=== PATIENT | female | born 1940 | race Caucasian/White ===

== ENCOUNTER 2020-11-22 15:13 | Inpatient (IN) | payer MEDICARE ==
[2020-11-22 17:15] LABS: #Basophils 0.1 thou/uL (0.0-0.2); #Eosinphils 0.1 thou/uL (0.0-0.7); #Lymphocytes 3.1 thou/uL (1.20-3.40); #Monocytes 1.8 thou/uL (0.11-0.59); #Neutrophils 9.8 thou/uL (1.40-6.50); %Basophils 0.5 % (0.0-1.0); %Eosinophils 0.5 % (0.0-10.0); %Lymphocytes 20.8 % (21.0-51.0); %Neutrophils 66.1 % (42.0-75.0); Hemoglobin 15.4 g/dL (12.0-16.0); Mean Corpuscular HGB CONC 33.9 g/dL (32.0-36.0); Mean Corpuscular Hemoglobin 32.7 pg (27.0-31.0); Mean Corpuscular Volume 96.3 fL (78.0-98.0); Mean Platelet Volume 9.6 fL (7.4-10.4); Platelet Count 282 thou/uL (130-400); RBC Distribution Width 12.6 % (11.5-14.5); Red Blood Cell (RBC) Count 4.71 mill/uL (4.20-5.40); White Blood Cell (WBC) Count 14.8 thou/uL (4.8-10.8)
[2020-11-22 17:29] LABS: INR-International Normal Ratio 1.1
[2020-11-22 17:39] LABS: ALT (SGPT) 24 U/L (8-55); AST (SGOT) 36 U/L (5-34); Albumin 4.4 g/dL (3.4-4.8); Alkaline Phosphatase 108 U/L (40-110); Anion Gap 24 mmol/L (10-20); BUN (Urea Nitrogen) 82 mg/dL (9.8-20.1); Bilirubin, Total 1.3 mg/dL (0.2-1.2); Calc. Creatinine Clearance 0 mL/min (70-130); Calcium 9.9 mg/dL (7.8-10.44); Carbon Dioxide 37 mmol/L (23-31); Globulin 3.7 g/dL (2.4-3.5); Glucose 253 mg/dL (83-110); Protein, Total 8.1 g/dL (5.8-8.1); Sodium 131 mmol/L (136-145)
[2020-11-22 17:47] LABS: Chloride 72 mmol/L (98-107); Potassium 2.2 mmol/L (3.5-5.1)
[2020-11-22] MEDS ORDERED: Meclizine HCl 25 MG TAB ONE (18:01)
[2020-11-22] MEDS ORDERED: Aspirin 325 MG TAB ONE (18:01)
[2020-11-22] MEDS ORDERED: Potassium Chloride 20 MEQ TAB ONE (18:01)
[2020-11-22 18:02] LABS: CKMB 1.3 ng/mL (0-6.6)
[2020-11-22 18:12] LABS: Bilirubin Negative (Negative); Blood, Urine Negative (Negative); Clarity Clear (Clear); Glucose, Urine (Dipstick) Normal (Negative); Ketone, Urine Negative (Negative); Leukocyte Negative Leu/uL (Negative); Nitrite Negative (Negative); Protein, Urine (Dipstick) Negative (Neg-Trace); Specific Gravity, Urine 1.012 (1.002-1.036); Urobilinogen Normal mg/dL (Less than 2)
[2020-11-22 20:41] LABS: Troponin I 0.056 ng/mL (< 0.028)
[2020-11-22] MEDS ORDERED: Dextrose 5% in Water 1,000 ML IV PRN (21:55)
[2020-11-22] MEDS ORDERED: Ondansetron PF 4 MG/2 ML Vial IVP PRN (21:55)
[2020-11-22] MEDS ORDERED: Dextrose 50% Abboject 50 ML SYRINGE SLOW IVP PRN (21:55)
[2020-11-22] MEDS ORDERED: Magnesium 2 GM/50 ML 2 GM in Premix Bag 1 BAG IVPB SCH (22:00)
[2020-11-22 22:21] LABS: Anion Gap 27 mmol/L (10-20); BUN (Urea Nitrogen) 77 mg/dL (9.8-20.1); Calc. Creatinine Clearance 0 mL/min (70-130); Calcium 9.7 mg/dL (7.8-10.44); Carbon Dioxide 33 mmol/L (23-31); Chloride 74 mmol/L (98-107); Glucose 190 mg/dL (83-110); Potassium 3.1 mmol/L (3.5-5.1); Sodium 131 mmol/L (136-145)
[2020-11-22] MEDS ORDERED: Sodium Chloride 0.9% 1,000 ML IV SCH (22:30)
[2020-11-22] MEDS ORDERED: Lantus 1000 UNITS/10 ML VIAL SC SCH (22:30)
[2020-11-22] MEDS: Potassium Chloride 20 MEQ in Premix Bag 1 BAG IVPB SCH (23:08)
[2020-11-22 23:42] LABS: Troponin I 0.041 ng/mL (< 0.028)
[2020-11-23] MEDS: Potassium Chloride 20 MEQ in Premix Bag 1 BAG IVPB SCH (02:50)
[2020-11-23 05:24] LABS: #Eosinphils 0.1 thou/uL (0.0-0.7); #Lymphocytes 2.8 thou/uL (1.20-3.40); #Monocytes 1.6 thou/uL (0.11-0.59); #Neutrophils 7.6 thou/uL (1.40-6.50); %Basophils 0.4 % (0.0-1.0); %Eosinophils 1.1 % (0.0-10.0); %Lymphocytes 23.2 % (21.0-51.0); %Monocytes 13.2 % (0.0-10.0); %Neutrophils 62.1 % (42.0-75.0); Hemoglobin 14.4 g/dL (12.0-16.0); Mean Corpuscular HGB CONC 34.5 g/dL (32.0-36.0); Mean Corpuscular Hemoglobin 33.2 pg (27.0-31.0); Mean Corpuscular Volume 96.2 fL (78.0-98.0); Mean Platelet Volume 9.6 fL (7.4-10.4); Platelet Count 254 thou/uL (130-400); RBC Distribution Width 12.5 % (11.5-14.5); Red Blood Cell (RBC) Count 4.34 mill/uL (4.20-5.40); White Blood Cell (WBC) Count 12.2 thou/uL (4.8-10.8)
[2020-11-23 05:48] LABS: Anion Gap 19 mmol/L (10-20); BUN (Urea Nitrogen) 72 mg/dL (9.8-20.1); Calc. Creatinine Clearance 28 mL/min (70-130); Calcium 9.7 mg/dL (7.8-10.44); Carbon Dioxide 35 mmol/L (23-31); Chloride 80 mmol/L (98-107); Glucose 200 mg/dL (83-110); Magnesium 2.9 mg/dL (1.6-2.6); Sodium 132 mmol/L (136-145)
[2020-11-23 05:50] LABS: Potassium 2.2 mmol/L (3.5-5.1)
[2020-11-23] MEDS: Acetaminophen 325 MG TAB PO PRN (05:56)
[2020-11-23] MEDS ORDERED: Meclizine HCl 25 MG TAB PO PRN (06:00)
[2020-11-23] MEDS: HumaLOG 300 UNITS/3 ML VIAL SC PRN ×3 (06:13→18:29)
[2020-11-23] MEDS ORDERED: Potassium Chloride 20 MEQ TAB PO SCH ×2 (06:15→14:15)
[2020-11-23] MEDS ORDERED: Metoprolol Tartrate 25 MG TAB PO SCH (09:00)
[2020-11-23] MEDS: Lantus 1000 UNITS/10 ML VIAL SC SCH ×2 (09:51→21:04)
[2020-11-23] MEDS ORDERED: Potassium Chloride 40 MEQ in Premix Bag 1 BAG IVPB SCH (12:15)
[2020-11-23 13:59] LABS: Anion Gap 18 mmol/L (10-20); BUN (Urea Nitrogen) 73 mg/dL (9.8-20.1); Calc. Creatinine Clearance 27 mL/min (70-130); Calcium 9.3 mg/dL (7.8-10.44); Carbon Dioxide 34 mmol/L (23-31); Chloride 80 mmol/L (98-107); Glucose 290 mg/dL (83-110); Sodium 129 mmol/L (136-145)
[2020-11-23 14:01] LABS: Potassium 2.8 mmol/L (3.5-5.1)
[2020-11-23] MEDS: Metoprolol Tartrate 25 MG TAB PO SCH (18:43)
[2020-11-23] MEDS: Potassium Chloride 20 MEQ TAB PO SCH (21:02)
[2020-11-23] MEDS: Gabapentin 100 MG CAP PO SCH (21:03)
[2020-11-23 21:04] LABS: #Basophils 0.1 thou/uL (0.0-0.2); #Eosinphils 0.2 thou/uL (0.0-0.7); #Lymphocytes 4.1 thou/uL (1.20-3.40); #Monocytes 1.5 thou/uL (0.11-0.59); #Neutrophils 6.2 thou/uL (1.40-6.50); %Basophils 0.6 % (0.0-1.0); %Eosinophils 1.8 % (0.0-10.0); %Lymphocytes 33.8 % (21.0-51.0); %Monocytes 12.2 % (0.0-10.0); %Neutrophils 51.6 % (42.0-75.0); Hemoglobin 13.9 g/dL (12.0-16.0); Mean Corpuscular Hemoglobin 33.2 pg (27.0-31.0); Mean Corpuscular Volume 97.6 fL (78.0-98.0); Mean Platelet Volume 9.4 fL (7.4-10.4); Platelet Count 258 thou/uL (130-400); RBC Distribution Width 12.5 % (11.5-14.5); Red Blood Cell (RBC) Count 4.18 mill/uL (4.20-5.40)
[2020-11-23 21:20] LABS: Anion Gap 16 mmol/L (10-20); BUN (Urea Nitrogen) 72 mg/dL (9.8-20.1); Calc. Creatinine Clearance 29 mL/min (70-130); Calcium 9.4 mg/dL (7.8-10.44); Carbon Dioxide 34 mmol/L (23-31); Chloride 85 mmol/L (98-107); Glucose 279 mg/dL (83-110); Potassium 3.4 mmol/L (3.5-5.1); Sodium 132 mmol/L (136-145)
[2020-11-24] MEDS: traMADol HCl 50 MG TAB PO SCH ×4 (00:27→21:50)
[2020-11-24] MEDS: Potassium Chloride 20 MEQ TAB PO SCH (00:28)
[2020-11-24 05:56] LABS: #Basophils 0.1 thou/uL (0.0-0.2); #Eosinphils 0.3 thou/uL (0.0-0.7); #Lymphocytes 4.5 thou/uL (1.20-3.40); #Monocytes 1.4 thou/uL (0.11-0.59); #Neutrophils 4.9 thou/uL (1.40-6.50); %Basophils 0.9 % (0.0-1.0); %Eosinophils 2.8 % (0.0-10.0); %Monocytes 12.4 % (0.0-10.0); %Neutrophils 43.8 % (42.0-75.0); Hemoglobin 13.1 g/dL (12.0-16.0); Mean Corpuscular HGB CONC 33.7 g/dL (32.0-36.0); Mean Corpuscular Hemoglobin 32.9 pg (27.0-31.0); Mean Corpuscular Volume 97.8 fL (78.0-98.0); Mean Platelet Volume 9.5 fL (7.4-10.4); Platelet Count 238 thou/uL (130-400); RBC Distribution Width 12.5 % (11.5-14.5); Red Blood Cell (RBC) Count 3.97 mill/uL (4.20-5.40); White Blood Cell (WBC) Count 11.1 thou/uL (4.8-10.8)
[2020-11-24] MEDS: HumaLOG 300 UNITS/3 ML VIAL SC PRN ×4 (06:09→22:03)
[2020-11-24 06:17] LABS: BUN (Urea Nitrogen) 65 mg/dL (9.8-20.1); Calc. Creatinine Clearance 35 mL/min (70-130); Calcium 9.3 mg/dL (7.8-10.44); Glucose 195 mg/dL (83-110); Magnesium 2.9 mg/dL (1.6-2.6)
[2020-11-24 06:26] LABS: Anion Gap 19 mmol/L (10-20); Carbon Dioxide 32 mmol/L (23-31); Chloride 88 mmol/L (98-107); Potassium 3.7 mmol/L (3.5-5.1); Sodium 135 mmol/L (136-145)
[2020-11-24] MEDS: Lantus 1000 UNITS/10 ML VIAL SC SCH ×2 (09:17→21:46)
[2020-11-24] MEDS: Metoprolol Tartrate 25 MG TAB PO SCH ×2 (09:17→16:51)
[2020-11-24] MEDS: Gabapentin 100 MG CAP PO SCH (21:47)
[2020-11-24] MEDS: Acetaminophen 325 MG TAB PO PRN (21:51)
[2020-11-25] MEDS: Melatonin 3 MG TAB PO PRN (00:20)
[2020-11-25] MEDS: Acetaminophen 325 MG TAB PO PRN (04:16)
[2020-11-25 05:00] LABS: #Basophils 0.1 thou/uL (0.0-0.2); #Eosinphils 0.4 thou/uL (0.0-0.7); #Lymphocytes 4.5 thou/uL (1.20-3.40); #Monocytes 1.1 thou/uL (0.11-0.59); #Neutrophils 4.4 thou/uL (1.40-6.50); %Basophils 0.7 % (0.0-1.0); %Eosinophils 3.4 % (0.0-10.0); %Lymphocytes 43.2 % (21.0-51.0); %Monocytes 10.7 % (0.0-10.0); %Neutrophils 42.1 % (42.0-75.0); Hemoglobin 12.4 g/dL (12.0-16.0); Mean Corpuscular HGB CONC 34.1 g/dL (32.0-36.0); Mean Corpuscular Hemoglobin 33.3 pg (27.0-31.0); Mean Corpuscular Volume 97.4 fL (78.0-98.0); Mean Platelet Volume 9.3 fL (7.4-10.4); Platelet Count 216 thou/uL (130-400); RBC Distribution Width 12.5 % (11.5-14.5); Red Blood Cell (RBC) Count 3.73 mill/uL (4.20-5.40); White Blood Cell (WBC) Count 10.5 thou/uL (4.8-10.8)
[2020-11-25] MEDS: traMADol HCl 50 MG TAB PO SCH ×3 (05:08→21:12)
[2020-11-25 05:19] LABS: ALT (SGPT) 17 U/L (8-55); AST (SGOT) 27 U/L (5-34); Albumin 3.4 g/dL (3.4-4.8); Alkaline Phosphatase 97 U/L (40-110); Anion Gap 12 mmol/L (10-20); BUN (Urea Nitrogen) 52 mg/dL (9.8-20.1); Bilirubin, Total 0.4 mg/dL (0.2-1.2); Calc. Creatinine Clearance 43 mL/min (70-130); Carbon Dioxide 35 mmol/L (23-31); Chloride 91 mmol/L (98-107); Globulin 3.1 g/dL (2.4-3.5); Glucose 164 mg/dL (83-110); Magnesium 2.7 mg/dL (1.6-2.6); Potassium 3.2 mmol/L (3.5-5.1); Protein, Total 6.5 g/dL (5.8-8.1); Sodium 135 mmol/L (136-145)
[2020-11-25] MEDS: Lantus 1000 UNITS/10 ML VIAL SC SCH ×2 (08:03→21:14)
[2020-11-25] MEDS: Metoprolol Tartrate 25 MG TAB PO SCH ×2 (08:06→16:37)
[2020-11-25] MEDS ORDERED: SUGAMMADEX SODIUM 500 MG/5 ML VIAL ONE (08:19)
[2020-11-25] MEDS: HumaLOG 300 UNITS/3 ML VIAL SC PRN ×3 (11:19→21:23)
[2020-11-25] MEDS: Gabapentin 100 MG CAP PO SCH (21:13)
[2020-11-26] MEDS: Melatonin 3 MG TAB PO PRN ×2 (00:32→20:48)
[2020-11-26] MEDS: Acetaminophen 325 MG TAB PO PRN (06:31)
[2020-11-26] MEDS: traMADol HCl 50 MG TAB PO SCH ×3 (06:32→20:50)
[2020-11-26] MEDS: Lantus 1000 UNITS/10 ML VIAL SC SCH ×2 (08:01→20:49)
[2020-11-26] MEDS: Metoprolol Tartrate 25 MG TAB PO SCH ×2 (08:01→15:29)
[2020-11-26] MEDS: HumaLOG 300 UNITS/3 ML VIAL SC PRN ×3 (11:39→20:49)
[2020-11-26] MEDS ORDERED: Sodium Chloride 0.9% 500 ML IVPB SCH (15:30)
[2020-11-26 15:47] VITALS: BMI 34.4
[2020-11-26] MEDS: Gabapentin 100 MG CAP PO SCH (20:47)
[2020-11-27] MEDS: Acetaminophen 325 MG TAB PO PRN ×2 (03:30→07:53)
[2020-11-27] MEDS: traMADol HCl 50 MG TAB PO SCH (06:13)
[2020-11-27] MEDS: HumaLOG 300 UNITS/3 ML VIAL SC PRN (06:14)
[2020-11-27 07:53] VITALS: BP 112/59; TEMP 98.1
[2020-11-27] MEDS: Lantus 1000 UNITS/10 ML VIAL SC SCH (07:53)
[2020-11-27] MEDS: Metoprolol Tartrate 25 MG TAB PO SCH (07:54)
[2020-11-27 08:29] LABS: #Basophils 0.1 thou/uL (0.0-0.2); #Eosinphils 0.3 thou/uL (0.0-0.7); #Lymphocytes 3.7 thou/uL (1.20-3.40); #Monocytes 1.1 thou/uL (0.11-0.59); #Neutrophils 4.5 thou/uL (1.40-6.50); %Basophils 0.8 % (0.0-1.0); %Eosinophils 2.8 % (0.0-10.0); %Lymphocytes 38.5 % (21.0-51.0); %Neutrophils 46.9 % (42.0-75.0); Mean Corpuscular HGB CONC 32.6 g/dL (32.0-36.0); Mean Corpuscular Hemoglobin 32.5 pg (27.0-31.0); Mean Corpuscular Volume 99.6 fL (78.0-98.0); Mean Platelet Volume 9.1 fL (7.4-10.4); Platelet Count 225 thou/uL (130-400); RBC Distribution Width 12.5 % (11.5-14.5); White Blood Cell (WBC) Count 9.6 thou/uL (4.8-10.8)
[2020-11-27 08:53] LABS: ALT (SGPT) 16 U/L (8-55); AST (SGOT) 28 U/L (5-34); Albumin 3.2 g/dL (3.4-4.8); Alkaline Phosphatase 79 U/L (40-110); Anion Gap 15 mmol/L (10-20); BUN (Urea Nitrogen) 35 mg/dL (9.8-20.1); Bilirubin, Total 0.4 mg/dL (0.2-1.2); Calc. Creatinine Clearance 44 mL/min (70-130); Calcium 9.1 mg/dL (7.8-10.44); Carbon Dioxide 34 mmol/L (23-31); Chloride 92 mmol/L (98-107); Globulin 3.6 g/dL (2.4-3.5); Glucose 198 mg/dL (83-110); Protein, Total 6.8 g/dL (5.8-8.1); Sodium 137 mmol/L (136-145)
== END 2020-11-27 11:45 | disposition home health service (06) | DRG 683 ==
LOC: ERS 15:13 → 2NO 19:50
PROVIDERS: ADMIT Internal Medicine; ATTEND Student in an Organized Health Care Education/Training Program
PROC: 0T9B70Z Drainage of Bladder with Drainage Device, Via Natural or Artificial Opening (ICD-10-PCS; principal; 2020-11-23)
DX: N17.9 Acute kidney failure, unspecified (principal); E87.1 Hypo-osmolality and hyponatremia; I13.0 Hypertensive heart and chronic kidney disease with heart failure and stage 1 through stage 4 chronic kidney disease, or unspecified chronic kidney disease; E87.3 Alkalosis; R33.9 Retention of urine, unspecified; Z20.822 Contact with and (suspected) exposure to COVID-19; N18.30 Chronic kidney disease, stage 3 unspecified; E87.6 Hypokalemia; E87.8 Other disorders of electrolyte and fluid balance, not elsewhere classified; D72.829 Elevated white blood cell count, unspecified; E11.22 Type 2 diabetes mellitus with diabetic chronic kidney disease; G89.4 Chronic pain syndrome; M79.7 Fibromyalgia; I48.0 Paroxysmal atrial fibrillation; M19.90 Unspecified osteoarthritis, unspecified site; I50.9 Heart failure, unspecified; R77.8 Other specified abnormalities of plasma proteins; E11.40 Type 2 diabetes mellitus with diabetic neuropathy, unspecified; J44.9 Chronic obstructive pulmonary disease, unspecified; E86.0 Dehydration; E66.9 Obesity, unspecified; Z68.33 Body mass index [BMI] 33.0-33.9, adult; Z88.1 Allergy status to other antibiotic agents; Z91.041 Radiographic dye allergy status; Z90.710 Acquired absence of both cervix and uterus; Z79.899 Other long term (current) drug therapy; Z79.4 Long term (current) use of insulin; Z82.49 Family history of ischemic heart disease and other diseases of the circulatory system; Z87.891 Personal history of nicotine dependence
CPT/HCPCS: 36415; 36416; 70450; 70551; 71045; 76770; 80048; 80053; 81003; 82553; 82570; 83735; 83930; 83935; 84484; 85025; 85610; 85730; 87635; 93005; J1815; J3480; J7030; U0003; U0005

== ENCOUNTER 2022-06-26 19:00 | Outpatient (CLI) | payer MEDICARE | END 2022-06-26 19:01 | disposition home or self-care (01) | LOC: SLEEPLAB 19:00 | PROVIDERS: ATTEND Family Medicine | DX: G47.33 Obstructive sleep apnea (adult) (pediatric) (principal); G47.9 Sleep disorder, unspecified; I25.10 Atherosclerotic heart disease of native coronary artery without angina pectoris; E11.9 Type 2 diabetes mellitus without complications; E66.9 Obesity, unspecified; R06.83 Snoring; G47.10 Hypersomnia, unspecified; G47.00 Insomnia, unspecified; I10 Essential (primary) hypertension; G47.31 Primary central sleep apnea | CPT/HCPCS: 95810 ==

== ENCOUNTER 2022-07-13 20:30 | Inpatient (IN) | payer OTHER ==
[2022-07-13 21:03] LABS: #Eosinphils 0.3 thou/uL (0.0-0.7); #Lymphocytes 3.3 thou/uL (1.20-3.40); #Monocytes 0.8 thou/uL (0.11-0.59); #Neutrophils 5.9 thou/uL (1.40-6.50); %Basophils 0.5 % (0.0-1.0); %Eosinophils 2.4 % (0.0-10.0); %Lymphocytes 31.7 % (21.0-51.0); %Monocytes 7.9 % (0.0-10.0); %Neutrophils 57.5 % (42.0-75.0); Hemoglobin 12.9 g/dL (12.0-16.0); Mean Corpuscular HGB CONC 33.2 g/dL (32.0-36.0); Mean Corpuscular Hemoglobin 33.4 pg (27.0-31.0); Mean Platelet Volume 8.5 fL (7.4-10.4); Platelet Count 231 10x3/uL (130-400); RBC Distribution Width 13.5 % (11.5-14.5); Red Blood Cell (RBC) Count 3.85 mill/uL (4.20-5.40); White Blood Cell (WBC) Count 10.3 10x3/uL (4.8-10.8)
[2022-07-13 21:26] LABS: ALT (SGPT) 14 U/L (8-55); AST (SGOT) 19 U/L (5-34); Albumin 4.1 g/dL (3.4-4.8); Alkaline Phosphatase 97 U/L (40-110); Anion Gap 15 mmol/L (10-20); BUN (Urea Nitrogen) 42 mg/dL (9.8-20.1); Bilirubin, Total 0.8 mg/dL (0.2-1.2); Calc. Creatinine Clearance 0 mL/min (70-130); Calcium 9.1 mg/dL (7.8-10.44); Carbon Dioxide 26 mmol/L (23-31); Chloride 104 mmol/L (98-107); Estimated GFR 30; Globulin 3.3 g/dL (2.4-3.5); Glucose 200 mg/dL (83-110); Potassium 3.8 mmol/L (3.5-5.1); Protein, Total 7.4 g/dL (5.8-8.1); Sodium 141 mmol/L (136-145)
[2022-07-13] MEDS ORDERED: Aspirin 325 MG TAB ONE (21:33)
[2022-07-13] MEDS ORDERED: Dextrose 5% in Water 1,000 ML IV PRN (22:15)
[2022-07-13] MEDS ORDERED: Dextrose 50% Abboject 50 ML SYRINGE SLOW IVP PRN (22:15)
[2022-07-13] MEDS ORDERED: Ondansetron ODT 4 MG TAB PO PRN (22:16)
[2022-07-13] MEDS ORDERED: Senokot S 8.6-50 MG TAB PO PRN (22:16)
[2022-07-13] MEDS ORDERED: Furosemide 40 MG/4 ML VIAL SLOW IVP SCH (22:30)
[2022-07-14 00:10] VITALS: BMI 34.3
[2022-07-14] MEDS ORDERED: HumaLOG 300 UNITS/3 ML VIAL SC PRN (00:30)
[2022-07-14] MEDS: Acetaminophen 325 MG TAB PO PRN ×3 (01:18→17:01)
[2022-07-14] MEDS: traMADol HCl 50 MG TAB PO PRN ×3 (01:22→19:33)
[2022-07-14 06:18] LABS: #Basophils 0.1 thou/uL (0.0-0.2); #Eosinphils 0.3 thou/uL (0.0-0.7); #Lymphocytes 3.2 thou/uL (1.20-3.40); #Neutrophils 5.6 thou/uL (1.40-6.50); %Basophils 0.7 % (0.0-1.0); %Eosinophils 3.2 % (0.0-10.0); %Lymphocytes 31.6 % (21.0-51.0); %Monocytes 9.4 % (0.0-10.0); %Neutrophils 55.2 % (42.0-75.0); Mean Corpuscular Hemoglobin 31.1 pg (27.0-31.0); Mean Platelet Volume 8.6 fL (7.4-10.4); Platelet Count 225 10x3/uL (130-400); RBC Distribution Width 13.5 % (11.5-14.5); Red Blood Cell (RBC) Count 3.87 mill/uL (4.20-5.40); White Blood Cell (WBC) Count 10.1 10x3/uL (4.8-10.8)
[2022-07-14 06:46] LABS: ALT (SGPT) 13 U/L (8-55); AST (SGOT) 19 U/L (5-34); Albumin 3.9 g/dL (3.4-4.8); Alkaline Phosphatase 96 U/L (40-110); Anion Gap 16 mmol/L (10-20); BUN (Urea Nitrogen) 35 mg/dL (9.8-20.1); Bilirubin, Total 0.6 mg/dL (0.2-1.2); Calc. Creatinine Clearance 46 mL/min (70-130); Calcium 8.6 mg/dL (7.8-10.44); Carbon Dioxide 25 mmol/L (23-31); Cardiac Risk 3.8 (Less than 4.5); Chloride 106 mmol/L (98-107); Cholesterol 152 mg/dl (< 200 Desired); Estimated GFR 38; Globulin 3.3 g/dL (2.4-3.5); Glucose 119 mg/dL (83-110); HDL Cholesterol 40 mg/dL (>60 Neg Risk); LDL Cholesterol, Calculated 91 mg/dL; Potassium 3.5 mmol/L (3.5-5.1); Protein, Total 7.2 g/dL (5.8-8.1); Sodium 143 mmol/L (136-145); Triglycerides 106 mg/dL (Less than 150)
[2022-07-14] MEDS: Aspirin 81 mg Enteric Coated Tablet PO SCH (08:33)
[2022-07-14] MEDS: Furosemide 40 MG TAB PO SCH ×2 (08:34→14:56)
[2022-07-14] MEDS: Famotidine 20 MG TAB PO SCH (08:34)
[2022-07-14] MEDS: HumaLOG 300 UNITS/3 ML VIAL SC PRN ×2 (11:48→17:02)
[2022-07-14] MEDS: Metoprolol Tartrate 25 MG TAB PO SCH ×2 (11:50→16:31)
[2022-07-14] MEDS ORDERED: Potassium Chloride 20 MEQ TAB PO SCH (12:00)
[2022-07-14] MEDS ORDERED: Atorvastatin Calcium 40 MG TAB PO SCH (21:00)
[2022-07-15] MEDS: Acetaminophen 325 MG TAB PO PRN (01:29)
[2022-07-15] MEDS: traMADol HCl 50 MG TAB PO PRN ×2 (05:13→13:17)
[2022-07-15 05:27] LABS: Hemoglobin A1c 7.1 % (4.0-6.0)
[2022-07-15 05:43] LABS: Anion Gap 13 mmol/L (10-20); BUN (Urea Nitrogen) 27 mg/dL (9.8-20.1); Calc. Creatinine Clearance 56 mL/min (70-130); Calcium 9.2 mg/dL (7.8-10.44); Carbon Dioxide 25 mmol/L (23-31); Chloride 105 mmol/L (98-107); Estimated GFR 49; Glucose 157 mg/dL (83-110); Potassium 3.6 mmol/L (3.5-5.1); Sodium 139 mmol/L (136-145)
[2022-07-15] MEDS ORDERED: Potassium Chloride 20 MEQ TAB PO SCH (08:00)
[2022-07-15] MEDS: Aspirin 81 mg Enteric Coated Tablet PO SCH (08:09)
[2022-07-15] MEDS: Metoprolol Tartrate 25 MG TAB PO SCH ×2 (08:09→17:01)
[2022-07-15] MEDS: Famotidine 20 MG TAB PO SCH (08:09)
[2022-07-15] MEDS: Furosemide 40 MG TAB PO SCH ×3 (08:10→14:50)
[2022-07-15] MEDS ORDERED: Naproxen 500 MG TAB PO SCH (08:58)
[2022-07-15] MEDS ORDERED: Ondansetron PF 4 MG/2 ML Vial IVP PRN (10:08)
[2022-07-15] MEDS ORDERED: Methocarbamol 500 MG TAB PO PRN (16:41)
[2022-07-15 19:43] VITALS: BP 177/77; TEMP 97.9
[2022-07-17] MEDS ORDERED: FLU VACC QS2022-23(65YR UP)/PF 240 MCG/0.7 ML SYRINGE IM ONE (09:00)
== END 2022-07-15 20:32 | disposition home or self-care (01) | DRG 64 ==
LOC: ERS 20:30 → NEURO 21:33
PROVIDERS: ADMIT Student in an Organized Health Care Education/Training Program; ATTEND Internal Medicine
DX: I63.89 Other cerebral infarction (principal); I50.23 Acute on chronic systolic (congestive) heart failure; G81.91 Hemiplegia, unspecified affecting right dominant side; E11.9 Type 2 diabetes mellitus without complications; M79.7 Fibromyalgia; M19.90 Unspecified osteoarthritis, unspecified site; I11.0 Hypertensive heart disease with heart failure; I25.10 Atherosclerotic heart disease of native coronary artery without angina pectoris; R29.709 NIHSS score 9; I48.0 Paroxysmal atrial fibrillation; Z88.1 Allergy status to other antibiotic agents; Z91.041 Radiographic dye allergy status; Z90.710 Acquired absence of both cervix and uterus; Z79.84 Long term (current) use of oral hypoglycemic drugs; Z79.4 Long term (current) use of insulin; Z79.899 Other long term (current) drug therapy
CPT/HCPCS: 36415; 36416; 70450; 70551; 80048; 80053; 80061; 83036; 83880; 84443; 84484; 85025; 90471; 90662; 93005; 93306; 93880; G0008; J1815; J1940; Q0162; U0003; U0005

== ENCOUNTER 2022-07-16 02:27 | Inpatient (IN) | payer OTHER ==
[2022-07-16 03:32] LABS: #Eosinphils 0.1 thou/uL (0.0-0.7); #Lymphocytes 2.2 thou/uL (1.20-3.40); #Monocytes 0.8 thou/uL (0.11-0.59); #Neutrophils 6.9 thou/uL (1.40-6.50); %Basophils 0.2 % (0.0-1.0); %Eosinophils 1.3 % (0.0-10.0); %Lymphocytes 21.6 % (21.0-51.0); %Neutrophils 68.9 % (42.0-75.0); Hemoglobin 13.3 g/dL (12.0-16.0); Mean Corpuscular HGB CONC 32.5 g/dL (32.0-36.0); Mean Corpuscular Hemoglobin 32.6 pg (27.0-31.0); Mean Platelet Volume 8.7 fL (7.4-10.4); Platelet Count 223 10x3/uL (130-400); RBC Distribution Width 13.3 % (11.5-14.5); Red Blood Cell (RBC) Count 4.08 mill/uL (4.20-5.40)
[2022-07-16] MEDS ORDERED: PROPOFOL 20 ML ONE (03:38)
[2022-07-16 03:44] LABS: PTT 29.9 sec (22.9-36.1); Prothrombin Time 13.7 sec (12.0-14.7)
[2022-07-16 03:52] LABS: ALT (SGPT) 14 U/L (8-55); AST (SGOT) 27 U/L (5-34); Albumin 3.9 g/dL (3.4-4.8); Alkaline Phosphatase 89 U/L (40-110); Anion Gap 16 mmol/L (10-20); BUN (Urea Nitrogen) 27 mg/dL (9.8-20.1); Bilirubin, Total 0.8 mg/dL (0.2-1.2); Calc. Creatinine Clearance 0 mL/min (70-130); Calcium 9.2 mg/dL (7.8-10.44); Carbon Dioxide 21 mmol/L (23-31); Chloride 105 mmol/L (98-107); Estimated GFR 42; Globulin 3.4 g/dL (2.4-3.5); Glucose 171 mg/dL (83-110); Potassium 4.3 mmol/L (3.5-5.1); Protein, Total 7.3 g/dL (5.8-8.1); Sodium 138 mmol/L (136-145)
[2022-07-16 07:22] VITALS: BMI 34.3
[2022-07-16] MEDS ORDERED: Methocarbamol 500 MG TAB PO PRN (08:27)
[2022-07-16] MEDS ORDERED: Loratadine 10 MG TAB PO PRN (08:27)
[2022-07-16] MEDS ORDERED: Dextrose 5% in Water 1,000 ML IV PRN (08:30)
[2022-07-16] MEDS ORDERED: Dextrose 50% Abboject 50 ML SYRINGE SLOW IVP PRN (08:30)
[2022-07-16] MEDS ORDERED: HumaLOG 300 UNITS/3 ML VIAL SC PRN (08:30)
[2022-07-16] MEDS ORDERED: Ondansetron PF 4 MG/2 ML Vial IVP PRN (08:31)
[2022-07-16] MEDS ORDERED: Ondansetron ODT 4 MG TAB PO PRN (08:31)
[2022-07-16] MEDS: Multivitamin W/ Minerals 1 TAB PO SCH (09:34)
[2022-07-16] MEDS: traMADol HCl 50 MG TAB PO PRN ×2 (09:34→17:15)
[2022-07-16] MEDS: Oxybutynin 5 MG TAB PO SCH ×2 (09:34→20:20)
[2022-07-16] MEDS: Aspirin 81 mg Enteric Coated Tablet PO SCH (09:34)
[2022-07-16] MEDS ORDERED: Furosemide 20 MG TAB PO PRN (10:25)
[2022-07-16 13:27] LABS: SARS-CoV-2 NAA Rapid Test Not Detected (NotDetected)
[2022-07-16] MEDS: Metoprolol Tartrate 25 MG TAB PO SCH (17:15)
[2022-07-16] MEDS: Gabapentin 300 MG CAP PO SCH (20:20)
[2022-07-16] MEDS: Atorvastatin Calcium 40 MG TAB PO SCH (20:20)
[2022-07-16] MEDS: Senokot S 8.6-50 MG TAB PO PRN (20:24)
[2022-07-16] MEDS ORDERED: Acetaminophen 500 MG TAB PO SCH (23:15)
[2022-07-17] MEDS: traMADol HCl 50 MG TAB PO PRN ×2 (05:50→20:16)
[2022-07-17 07:19] LABS: #Basophils 0.1 thou/uL (0.0-0.2); #Eosinphils 0.4 thou/uL (0.0-0.7); #Lymphocytes 2.6 thou/uL (1.20-3.40); #Monocytes 1.2 thou/uL (0.11-0.59); #Neutrophils 4.7 thou/uL (1.40-6.50); %Basophils 0.6 % (0.0-1.0); %Eosinophils 4.3 % (0.0-10.0); %Monocytes 13.4 % (0.0-10.0); %Neutrophils 52.8 % (42.0-75.0); Hemoglobin 11.7 g/dL (12.0-16.0); Mean Corpuscular HGB CONC 31.3 g/dL (32.0-36.0); Mean Corpuscular Hemoglobin 32.3 pg (27.0-31.0); Mean Platelet Volume 8.6 fL (7.4-10.4); Platelet Count 214 10x3/uL (130-400); RBC Distribution Width 13.3 % (11.5-14.5); Red Blood Cell (RBC) Count 3.62 mill/uL (4.20-5.40); White Blood Cell (WBC) Count 8.8 10x3/uL (4.8-10.8)
[2022-07-17 07:33] LABS: Anion Gap 13 mmol/L (10-20); BUN (Urea Nitrogen) 31 mg/dL (9.8-20.1); Calc. Creatinine Clearance 46 mL/min (70-130); Carbon Dioxide 27 mmol/L (23-31); Chloride 102 mmol/L (98-107); Estimated GFR 39; Glucose 176 mg/dL (83-110); Sodium 138 mmol/L (136-145)
[2022-07-17] MEDS: Acetaminophen 325 MG TAB PO PRN ×3 (09:25→20:17)
[2022-07-17] MEDS: Oxybutynin 5 MG TAB PO SCH ×2 (09:26→20:16)
[2022-07-17] MEDS: Aspirin 81 mg Enteric Coated Tablet PO SCH (09:26)
[2022-07-17] MEDS: Metoprolol Tartrate 25 MG TAB PO SCH ×2 (09:26→16:59)
[2022-07-17] MEDS: Multivitamin W/ Minerals 1 TAB PO SCH (09:26)
[2022-07-17] MEDS: Potassium Chloride 20 MEQ TAB PO SCH (09:26)
[2022-07-17] MEDS: HumaLOG 300 UNITS/3 ML VIAL SC PRN (16:54)
[2022-07-17] MEDS: Senokot S 8.6-50 MG TAB PO PRN (16:58)
[2022-07-17] MEDS: Atorvastatin Calcium 40 MG TAB PO SCH (20:16)
[2022-07-17] MEDS: Gabapentin 300 MG CAP PO SCH (20:18)
[2022-07-18] MEDS: Acetaminophen 325 MG TAB PO PRN (06:23)
[2022-07-18] MEDS: traMADol HCl 50 MG TAB PO PRN (06:24)
[2022-07-18 07:25] LABS: #Eosinphils 0.4 thou/uL (0.0-0.7); #Lymphocytes 2.7 thou/uL (1.20-3.40); #Monocytes 0.9 thou/uL (0.11-0.59); #Neutrophils 4.4 thou/uL (1.40-6.50); %Basophils 0.5 % (0.0-1.0); %Eosinophils 4.2 % (0.0-10.0); %Lymphocytes 31.7 % (21.0-51.0); %Monocytes 10.6 % (0.0-10.0); %Neutrophils 52.9 % (42.0-75.0); Hemoglobin 12.2 g/dL (12.0-16.0); Mean Corpuscular HGB CONC 31.2 g/dL (32.0-36.0); Mean Platelet Volume 8.6 fL (7.4-10.4); Platelet Count 218 10x3/uL (130-400); RBC Distribution Width 13.3 % (11.5-14.5); Red Blood Cell (RBC) Count 3.81 mill/uL (4.20-5.40); White Blood Cell (WBC) Count 8.4 10x3/uL (4.8-10.8)
[2022-07-18 07:49] LABS: Anion Gap 12 mmol/L (10-20); BUN (Urea Nitrogen) 29 mg/dL (9.8-20.1); Calc. Creatinine Clearance 58 mL/min (70-130); Calcium 9.6 mg/dL (7.8-10.44); Carbon Dioxide 30 mmol/L (23-31); Chloride 101 mmol/L (98-107); Estimated GFR 52; Glucose 168 mg/dL (83-110); Sodium 139 mmol/L (136-145)
[2022-07-18] MEDS: Oxybutynin 5 MG TAB PO SCH (08:36)
[2022-07-18] MEDS: Metoprolol Tartrate 25 MG TAB PO SCH (08:36)
[2022-07-18] MEDS: Aspirin 81 mg Enteric Coated Tablet PO SCH (08:36)
[2022-07-18] MEDS: Potassium Chloride 20 MEQ TAB PO SCH (08:36)
[2022-07-18] MEDS: Multivitamin W/ Minerals 1 TAB PO SCH (08:36)
[2022-07-18] MEDS ORDERED: Bisacodyl 10 MG SUPP PR PRN (09:42)
[2022-07-18] MEDS ORDERED: NIFEdipine XL 60 MG TAB PO SCH (10:10)
[2022-07-18] MEDS ORDERED: Fleet Enema 133 ML BOT PR SCH (10:15)
[2022-07-18] MEDS: HumaLOG 300 UNITS/3 ML VIAL SC PRN (11:26)
[2022-07-18 15:43] VITALS: BP 138/65; TEMP 97.7
[2022-07-18] MEDS ORDERED: Senokot S 8.6-50 MG TAB PO SCH (21:00)
[2022-07-18] MEDS ORDERED: Metoprolol Tartrate 50 MG TAB PO SCH (21:00)
[2022-07-19] MEDS ORDERED: NIFEdipine XL 60 MG TAB PO SCH (09:00)
[2022-07-19] MEDS ORDERED: Polyethylene Glycol 3350 17 GM Packet PO SCH (09:00)
== END 2022-07-18 15:35 | DRG 563 ==
LOC: ERS 02:27 → T4-B 07:05
PROVIDERS: ADMIT Internal Medicine; ATTEND Internal Medicine
PROC: 0RSKXZZ Reposition Left Shoulder Joint, External Approach (ICD-10-PCS; principal; 2022-07-16)
DX: S43.005A Unspecified dislocation of left shoulder joint, initial encounter (principal); I50.22 Chronic systolic (congestive) heart failure; I69.351 Hemiplegia and hemiparesis following cerebral infarction affecting right dominant side; I13.0 Hypertensive heart and chronic kidney disease with heart failure and stage 1 through stage 4 chronic kidney disease, or unspecified chronic kidney disease; Z20.822 Contact with and (suspected) exposure to COVID-19; E11.22 Type 2 diabetes mellitus with diabetic chronic kidney disease; N18.31 Chronic kidney disease, stage 3a; I48.0 Paroxysmal atrial fibrillation; W18.39XA Other fall on same level, initial encounter; I25.10 Atherosclerotic heart disease of native coronary artery without angina pectoris; Z88.1 Allergy status to other antibiotic agents; Z91.041 Radiographic dye allergy status; Z79.899 Other long term (current) drug therapy; Z79.4 Long term (current) use of insulin; Z79.82 Long term (current) use of aspirin; Z90.89 Acquired absence of other organs; Z90.710 Acquired absence of both cervix and uterus; Z98.890 Other specified postprocedural states; Z82.49 Family history of ischemic heart disease and other diseases of the circulatory system
CPT/HCPCS: 23650; 36415; 36416; 70450; 72125; 80048; 80053; 85025; 85610; 85730; 99156; 99157; J1815; J2405; J2704

== ENCOUNTER 2022-07-20 09:15 | Inpatient (IN) | payer OTHER ==
[2022-07-20] MEDS ORDERED: Nitroglycerin 0.4 MG TAB 1 EACH ONE (09:42)
[2022-07-20 09:59] LABS: #Basophils 0.1 thou/uL (0.0-0.2); #Eosinphils 0.3 thou/uL (0.0-0.7); #Lymphocytes 2.4 thou/uL (1.20-3.40); #Neutrophils 5.5 thou/uL (1.40-6.50); %Basophils 0.9 % (0.0-1.0); %Eosinophils 3.1 % (0.0-10.0); %Lymphocytes 25.7 % (21.0-51.0); %Monocytes 10.9 % (0.0-10.0); %Neutrophils 59.4 % (42.0-75.0); Hemoglobin 13.5 g/dL (12.0-16.0); Mean Corpuscular HGB CONC 32.1 g/dL (32.0-36.0); Mean Corpuscular Hemoglobin 32.2 pg (27.0-31.0); Mean Platelet Volume 8.5 fL (7.4-10.4); Platelet Count 248 10x3/uL (130-400); RBC Distribution Width 13.3 % (11.5-14.5); Red Blood Cell (RBC) Count 4.18 mill/uL (4.20-5.40); White Blood Cell (WBC) Count 9.3 10x3/uL (4.8-10.8)
[2022-07-20 10:17] LABS: ALT (SGPT) 16 U/L (8-55); AST (SGOT) 23 U/L (5-34); Albumin 3.8 g/dL (3.4-4.8); Alkaline Phosphatase 92 U/L (40-110); Anion Gap 13 mmol/L (10-20); BUN (Urea Nitrogen) 24 mg/dL (9.8-20.1); Calc. Creatinine Clearance 0 mL/min (70-130); Calcium 9.3 mg/dL (7.8-10.44); Carbon Dioxide 25 mmol/L (23-31); Chloride 104 mmol/L (98-107); Estimated GFR 55; Globulin 3.4 g/dL (2.4-3.5); Glucose 148 mg/dL (83-110); Potassium 4.3 mmol/L (3.5-5.1); Protein, Total 7.2 g/dL (5.8-8.1); Sodium 138 mmol/L (136-145)
[2022-07-20] MEDS ORDERED: Nitroglycerin 0.4 MG TAB (25 Tab Bottle) SL PRN (11:36)
[2022-07-20 11:46] LABS: Bacteria/HPF None Seen HPF (None Seen); Bilirubin Negative (Negative); Blood, Urine Negative (Negative); Clarity Clear (Clear); Glucose, Urine (Dipstick) Normal (Negative); Ketone, Urine Negative (Negative); Leukocyte Negative Leu/uL (Negative); Nitrite Negative (Negative); Protein, Urine (Dipstick) 30 mg/dL (Neg-Trace); RBC/HPF 0-3 HPF (0-3); Specific Gravity, Urine 1.015 (1.002-1.036); Squamous Epithelial 0-3 HPF (0-3); Urobilinogen Normal mg/dL (Less than 2); WBC/HPF 0-3 HPF (0-3); pH, Urine 6.5 (5.0-9.0)
[2022-07-20] MEDS ORDERED: Aspirin Chewable 81 MG TAB PO SCH (12:00)
[2022-07-20] MEDS ORDERED: Aspirin Chewable 81 MG TAB ONE (12:44)
[2022-07-20] MEDS ORDERED: Dextrose 50% Abboject 50 ML SYRINGE SLOW IVP PRN (13:44)
[2022-07-20] MEDS ORDERED: Dextrose 5% in Water 1,000 ML IV PRN (13:44)
[2022-07-20] MEDS: Methocarbamol 500 MG TAB PO PRN (14:16)
[2022-07-20 16:21] VITALS: BMI 33.6
[2022-07-20 17:14] LABS: Troponin I 0.017 ng/mL (< 0.028)
[2022-07-20] MEDS: Metoprolol Tartrate 50 MG TAB PO SCH (21:57)
[2022-07-20] MEDS: Insulin Glargine 30 UNITS/0.3 ML VIAL SC SCH (21:58)
[2022-07-20] MEDS: Oxybutynin 5 MG TAB PO SCH (21:58)
[2022-07-20] MEDS: Gabapentin 100 MG CAP PO SCH (21:59)
[2022-07-20] MEDS: traMADol HCl 50 MG TAB PO PRN (22:00)
[2022-07-20] MEDS: Atorvastatin Calcium 40 MG TAB PO SCH (22:00)
[2022-07-21] MEDS: traMADol HCl 50 MG TAB PO PRN ×2 (04:13→12:30)
[2022-07-21] MEDS ORDERED: Regadenoson 0.4 MG/5 ML SYRINGE ONE (10:29)
[2022-07-21] MEDS: Oxybutynin 5 MG TAB PO SCH ×2 (11:49→21:30)
[2022-07-21] MEDS: Metoprolol Tartrate 50 MG TAB PO SCH ×2 (11:49→21:30)
[2022-07-21] MEDS: Aspirin Chewable 81 MG TAB PO SCH (11:49)
[2022-07-21] MEDS: Insulin Glargine 30 UNITS/0.3 ML VIAL SC SCH ×2 (12:00→21:30)
[2022-07-21] MEDS ORDERED: Enoxaparin Sodium 100 MG/ML SYRINGE SC SCH (15:45)
[2022-07-21] MEDS: Gabapentin 100 MG CAP PO SCH (21:29)
[2022-07-21] MEDS: Atorvastatin Calcium 40 MG TAB PO SCH (21:29)
[2022-07-22] MEDS: traMADol HCl 50 MG TAB PO PRN ×2 (03:22→20:29)
[2022-07-22] MEDS ORDERED: Enoxaparin Sodium 100 MG/ML SYRINGE SC SCH (06:00)
[2022-07-22] MEDS: Aspirin Chewable 81 MG TAB PO SCH (09:36)
[2022-07-22] MEDS: Metoprolol Tartrate 50 MG TAB PO SCH ×2 (09:36→20:31)
[2022-07-22] MEDS: Oxybutynin 5 MG TAB PO SCH ×2 (09:36→20:31)
[2022-07-22] MEDS: Acetaminophen 325 MG TAB PO PRN ×2 (09:36→20:30)
[2022-07-22] MEDS: Insulin Glargine 30 UNITS/0.3 ML VIAL SC SCH ×2 (09:37→20:33)
[2022-07-22] MEDS: Docusate 100 MG CAP PO PRN ×2 (13:00→17:16)
[2022-07-22] MEDS: Gabapentin 100 MG CAP PO SCH (20:29)
[2022-07-22] MEDS: Atorvastatin Calcium 40 MG TAB PO SCH (20:30)
[2022-07-23] MEDS: Methocarbamol 500 MG TAB PO PRN (01:01)
[2022-07-23 05:39] LABS: #Basophils 0.1 thou/uL (0.0-0.2); #Eosinphils 0.4 thou/uL (0.0-0.7); #Lymphocytes 3.1 thou/uL (1.20-3.40); #Neutrophils 5.2 thou/uL (1.40-6.50); %Basophils 0.5 % (0.0-1.0); %Eosinophils 4.1 % (0.0-10.0); %Lymphocytes 31.8 % (21.0-51.0); %Monocytes 10.6 % (0.0-10.0); Hemoglobin 12.7 g/dL (12.0-16.0); Mean Corpuscular HGB CONC 32.3 g/dL (32.0-36.0); Platelet Count 243 10x3/uL (130-400); RBC Distribution Width 13.6 % (11.5-14.5); Red Blood Cell (RBC) Count 3.85 mill/uL (4.20-5.40); White Blood Cell (WBC) Count 9.8 10x3/uL (4.8-10.8)
[2022-07-23 06:00] LABS: ALT (SGPT) 16 U/L (8-55); AST (SGOT) 18 U/L (5-34); Albumin 3.5 g/dL (3.4-4.8); Alkaline Phosphatase 89 U/L (40-110); Anion Gap 14 mmol/L (10-20); BUN (Urea Nitrogen) 30 mg/dL (9.8-20.1); Bilirubin, Total 0.8 mg/dL (0.2-1.2); Calc. Creatinine Clearance 60 mL/min (70-130); Calcium 9.3 mg/dL (7.8-10.44); Carbon Dioxide 25 mmol/L (23-31); Chloride 104 mmol/L (98-107); Estimated GFR 55; Globulin 3.2 g/dL (2.4-3.5); Glucose 140 mg/dL (83-110); Potassium 3.9 mmol/L (3.5-5.1); Protein, Total 6.7 g/dL (5.8-8.1); Sodium 139 mmol/L (136-145)
[2022-07-23] MEDS: Insulin Glargine 30 UNITS/0.3 ML VIAL SC SCH ×2 (08:39→21:23)
[2022-07-23] MEDS: Aspirin Chewable 81 MG TAB PO SCH (08:39)
[2022-07-23] MEDS: Metoprolol Tartrate 50 MG TAB PO SCH (08:40)
[2022-07-23] MEDS: traMADol HCl 50 MG TAB PO PRN ×2 (08:41→17:50)
[2022-07-23] MEDS: Polyethylene Glycol 3350 17 GM Packet PO SCH (08:41)
[2022-07-23] MEDS: Oxybutynin 5 MG TAB PO SCH ×2 (08:41→21:23)
[2022-07-23] MEDS: Carvedilol 6.25 MG TAB PO SCH (16:27)
[2022-07-23] MEDS ORDERED: Carvedilol 6.25 MG TAB PO SCH (17:00)
[2022-07-23] MEDS: Gabapentin 100 MG CAP PO SCH (21:23)
[2022-07-23] MEDS: Atorvastatin Calcium 40 MG TAB PO SCH (21:23)
[2022-07-24] MEDS: traMADol HCl 50 MG TAB PO PRN ×2 (04:14→13:01)
[2022-07-24 06:34] LABS: #Eosinphils 0.3 thou/uL (0.0-0.7); #Lymphocytes 2.6 thou/uL (1.20-3.40); #Monocytes 1.1 thou/uL (0.11-0.59); #Neutrophils 5.7 thou/uL (1.40-6.50); %Basophils 0.4 % (0.0-1.0); %Eosinophils 3.6 % (0.0-10.0); %Lymphocytes 26.5 % (21.0-51.0); %Monocytes 10.8 % (0.0-10.0); %Neutrophils 58.7 % (42.0-75.0); Hemoglobin 12.3 g/dL (12.0-16.0); Mean Corpuscular HGB CONC 30.9 g/dL (32.0-36.0); Mean Corpuscular Hemoglobin 31.7 pg (27.0-31.0); Mean Platelet Volume 9.1 fL (7.4-10.4); Platelet Count 228 10x3/uL (130-400); RBC Distribution Width 13.4 % (11.5-14.5); Red Blood Cell (RBC) Count 3.87 mill/uL (4.20-5.40); White Blood Cell (WBC) Count 9.7 10x3/uL (4.8-10.8)
[2022-07-24 06:58] LABS: ALT (SGPT) 15 U/L (8-55); AST (SGOT) 17 U/L (5-34); Albumin 3.4 g/dL (3.4-4.8); Alkaline Phosphatase 89 U/L (40-110); Anion Gap 13 mmol/L (10-20); BUN (Urea Nitrogen) 30 mg/dL (9.8-20.1); Bilirubin, Total 0.7 mg/dL (0.2-1.2); Calc. Creatinine Clearance 61 mL/min (70-130); Carbon Dioxide 24 mmol/L (23-31); Chloride 102 mmol/L (98-107); Estimated GFR 55; Glucose 175 mg/dL (83-110); Potassium 4.2 mmol/L (3.5-5.1); Protein, Total 6.4 g/dL (5.8-8.1); Sodium 135 mmol/L (136-145)
[2022-07-24] MEDS: Polyethylene Glycol 3350 17 GM Packet PO SCH (09:59)
[2022-07-24] MEDS: NIFEdipine XL 30 MG TAB PO SCH (10:01)
[2022-07-24] MEDS: Carvedilol 6.25 MG TAB PO SCH ×2 (10:03→17:18)
[2022-07-24] MEDS: Aspirin Chewable 81 MG TAB PO SCH (10:03)
[2022-07-24] MEDS: Losartan 25 MG TAB PO SCH (10:03)
[2022-07-24] MEDS: Insulin Glargine 30 UNITS/0.3 ML VIAL SC SCH ×2 (10:03→21:30)
[2022-07-24] MEDS: Oxybutynin 5 MG TAB PO SCH ×2 (10:04→21:30)
[2022-07-24] MEDS: Acetaminophen 325 MG TAB PO PRN (14:49)
[2022-07-24] MEDS ORDERED: Sodium Chloride 0.65% Nasal 44 ML BOT EA NARE PRN (14:59)
[2022-07-24] MEDS ORDERED: Ondansetron ODT 4 MG TAB PO PRN (15:01)
[2022-07-24] MEDS: Gabapentin 100 MG CAP PO SCH (21:30)
[2022-07-24] MEDS: Enoxaparin Sodium 40 MG/0.4 ML SYRINGE SC SCH (21:30)
[2022-07-24] MEDS: Atorvastatin Calcium 40 MG TAB PO SCH (21:30)
[2022-07-25 05:30] LABS: Hemoglobin 12.6 g/dL (12.0-16.0); Mean Corpuscular HGB CONC 31.2 g/dL (32.0-36.0); Mean Corpuscular Hemoglobin 32.3 pg (27.0-31.0); Mean Platelet Volume 9.1 fL (7.4-10.4); Platelet Count 249 10x3/uL (130-400); RBC Distribution Width 13.6 % (11.5-14.5); Red Blood Cell (RBC) Count 3.91 mill/uL (4.20-5.40); White Blood Cell (WBC) Count 9.6 10x3/uL (4.8-10.8)
[2022-07-25 05:50] LABS: ALT (SGPT) 13 U/L (8-55); AST (SGOT) 16 U/L (5-34); Albumin 3.5 g/dL (3.4-4.8); Alkaline Phosphatase 90 U/L (40-110); Anion Gap 14 mmol/L (10-20); BUN (Urea Nitrogen) 36 mg/dL (9.8-20.1); Bilirubin, Total 0.6 mg/dL (0.2-1.2); Calc. Creatinine Clearance 62 mL/min (70-130); Calcium 9.5 mg/dL (7.8-10.44); Carbon Dioxide 24 mmol/L (23-31); Chloride 104 mmol/L (98-107); Estimated GFR 57; Globulin 3.3 g/dL (2.4-3.5); Glucose 141 mg/dL (83-110); Potassium 4.4 mmol/L (3.5-5.1); Protein, Total 6.8 g/dL (5.8-8.1); Sodium 138 mmol/L (136-145)
[2022-07-25 06:55] LABS: Band 1 % (5-11); Eosinophils 5 % (0-10); Lymphocytes 32 % (21-51); MDiff Complete? YES; Macrocytosis SLIGHT = 6-15 cells (100X) (0-5/hpf); Monocytes 4 % (0-10); Neutrophil 58 % (42-75)
[2022-07-25] MEDS: Polyethylene Glycol 3350 17 GM Packet PO SCH (09:49)
[2022-07-25] MEDS: Losartan 25 MG TAB PO SCH (09:50)
[2022-07-25] MEDS: Oxybutynin 5 MG TAB PO SCH ×2 (09:50→21:11)
[2022-07-25] MEDS: Insulin Glargine 30 UNITS/0.3 ML VIAL SC SCH ×2 (09:50→21:11)
[2022-07-25] MEDS: Aspirin Chewable 81 MG TAB PO SCH (09:50)
[2022-07-25] MEDS: NIFEdipine XL 30 MG TAB PO SCH (09:50)
[2022-07-25] MEDS: Carvedilol 6.25 MG TAB PO SCH ×2 (09:50→17:10)
[2022-07-25] MEDS: traMADol HCl 50 MG TAB PO PRN ×2 (12:44→23:14)
[2022-07-25] MEDS: HumaLOG 300 UNITS/3 ML VIAL SC PRN (13:35)
[2022-07-25] MEDS: Gabapentin 100 MG CAP PO SCH (21:10)
[2022-07-25] MEDS: Atorvastatin Calcium 40 MG TAB PO SCH (21:11)
[2022-07-25] MEDS: Enoxaparin Sodium 40 MG/0.4 ML SYRINGE SC SCH (21:11)
[2022-07-26 05:25] LABS: #Basophils 0.1 thou/uL (0.0-0.2); #Eosinphils 0.3 thou/uL (0.0-0.7); #Lymphocytes 3.3 thou/uL (1.20-3.40); #Monocytes 1.1 thou/uL (0.11-0.59); #Neutrophils 4.9 thou/uL (1.40-6.50); %Basophils 0.6 % (0.0-1.0); %Eosinophils 3.2 % (0.0-10.0); %Lymphocytes 33.8 % (21.0-51.0); %Monocytes 11.1 % (0.0-10.0); %Neutrophils 51.2 % (42.0-75.0); Hemoglobin 11.5 g/dL (12.0-16.0); Mean Corpuscular HGB CONC 32.2 g/dL (32.0-36.0); Mean Corpuscular Hemoglobin 32.5 pg (27.0-31.0); Mean Platelet Volume 9.4 fL (7.4-10.4); Platelet Count 247 10x3/uL (130-400); RBC Distribution Width 13.5 % (11.5-14.5); Red Blood Cell (RBC) Count 3.55 mill/uL (4.20-5.40); White Blood Cell (WBC) Count 9.6 10x3/uL (4.8-10.8)
[2022-07-26 05:49] LABS: Anion Gap 12 mmol/L (10-20); BUN (Urea Nitrogen) 33 mg/dL (9.8-20.1); Calc. Creatinine Clearance 59 mL/min (70-130); Calcium 9.4 mg/dL (7.8-10.44); Carbon Dioxide 29 mmol/L (23-31); Chloride 102 mmol/L (98-107); Estimated GFR 53; Glucose 133 mg/dL (83-110); Potassium 4.6 mmol/L (3.5-5.1); Sodium 138 mmol/L (136-145)
[2022-07-26] MEDS: Methocarbamol 500 MG TAB PO PRN (06:31)
[2022-07-26] MEDS: Carvedilol 6.25 MG TAB PO SCH ×2 (08:14→17:48)
[2022-07-26] MEDS: Insulin Glargine 30 UNITS/0.3 ML VIAL SC SCH ×2 (08:15→21:25)
[2022-07-26] MEDS: Aspirin Chewable 81 MG TAB PO SCH (08:15)
[2022-07-26] MEDS: NIFEdipine XL 30 MG TAB PO SCH (08:17)
[2022-07-26] MEDS: Losartan 25 MG TAB PO SCH (08:17)
[2022-07-26] MEDS: Oxybutynin 5 MG TAB PO SCH ×2 (08:18→21:24)
[2022-07-26] MEDS: Polyethylene Glycol 3350 17 GM Packet PO SCH (08:18)
[2022-07-26] MEDS: HumaLOG 300 UNITS/3 ML VIAL SC PRN (11:44)
[2022-07-26] MEDS: traMADol HCl 50 MG TAB PO PRN (17:48)
[2022-07-26] MEDS: Atorvastatin Calcium 40 MG TAB PO SCH (21:24)
[2022-07-26] MEDS: Enoxaparin Sodium 40 MG/0.4 ML SYRINGE SC SCH (21:24)
[2022-07-26] MEDS: Gabapentin 100 MG CAP PO SCH (21:24)
[2022-07-27] MEDS: traMADol HCl 50 MG TAB PO PRN (03:24)
[2022-07-27 05:48] LABS: #Eosinphils 0.3 thou/uL (0.0-0.7); #Monocytes 1.2 thou/uL (0.11-0.59); #Neutrophils 5.3 thou/uL (1.40-6.50); %Basophils 0.3 % (0.0-1.0); %Eosinophils 2.7 % (0.0-10.0); %Lymphocytes 30.7 % (21.0-51.0); %Neutrophils 54.3 % (42.0-75.0); Hemoglobin 11.7 g/dL (12.0-16.0); Mean Corpuscular HGB CONC 32.4 g/dL (32.0-36.0); Mean Corpuscular Hemoglobin 32.8 pg (27.0-31.0); Mean Platelet Volume 8.7 fL (7.4-10.4); Platelet Count 246 10x3/uL (130-400); RBC Distribution Width 13.3 % (11.5-14.5); Red Blood Cell (RBC) Count 3.55 mill/uL (4.20-5.40); White Blood Cell (WBC) Count 9.8 10x3/uL (4.8-10.8)
[2022-07-27 06:05] LABS: ALT (SGPT) 11 U/L (8-55); AST (SGOT) 12 U/L (5-34); Albumin 3.5 g/dL (3.4-4.8); Alkaline Phosphatase 91 U/L (40-110); Anion Gap 14 mmol/L (10-20); BUN (Urea Nitrogen) 30 mg/dL (9.8-20.1); Bilirubin, Total 0.7 mg/dL (0.2-1.2); Calc. Creatinine Clearance 59 mL/min (70-130); Calcium 9.4 mg/dL (7.8-10.44); Carbon Dioxide 23 mmol/L (23-31); Chloride 103 mmol/L (98-107); Estimated GFR 54; Glucose 156 mg/dL (83-110); Potassium 4.8 mmol/L (3.5-5.1); Protein, Total 6.5 g/dL (5.8-8.1); Sodium 135 mmol/L (136-145)
[2022-07-27] MEDS: Polyethylene Glycol 3350 17 GM Packet PO SCH (09:02)
[2022-07-27] MEDS: Carvedilol 6.25 MG TAB PO SCH (09:03)
[2022-07-27] MEDS: Insulin Glargine 30 UNITS/0.3 ML VIAL SC SCH (09:03)
[2022-07-27] MEDS: Aspirin Chewable 81 MG TAB PO SCH (09:03)
[2022-07-27] MEDS: NIFEdipine XL 30 MG TAB PO SCH (09:03)
[2022-07-27] MEDS: Oxybutynin 5 MG TAB PO SCH (09:03)
[2022-07-27] MEDS: Losartan 25 MG TAB PO SCH (09:03)
[2022-07-27 12:03] VITALS: BP 132/58; TEMP 98.7
== END 2022-07-27 14:05 | DRG 313 ==
LOC: ERS 09:15 → ERHOLD 11:00 → 2SW 15:41 → OBSVTOIN 07-22 16:06
PROVIDERS: ADMIT Internal Medicine; ATTEND Internal Medicine
DX: R07.9 Chest pain, unspecified (principal); E87.1 Hypo-osmolality and hyponatremia; I50.22 Chronic systolic (congestive) heart failure; I48.20 Chronic atrial fibrillation, unspecified; I13.2 Hypertensive heart and chronic kidney disease with heart failure and with stage 5 chronic kidney disease, or end stage renal disease; Z20.822 Contact with and (suspected) exposure to COVID-19; I08.1 Rheumatic disorders of both mitral and tricuspid valves; I25.10 Atherosclerotic heart disease of native coronary artery without angina pectoris; E78.5 Hyperlipidemia, unspecified; E11.22 Type 2 diabetes mellitus with diabetic chronic kidney disease; N18.30 Chronic kidney disease, stage 3 unspecified; D53.9 Nutritional anemia, unspecified; Z86.73 Personal history of transient ischemic attack (TIA), and cerebral infarction without residual deficits; Z88.1 Allergy status to other antibiotic agents; Z91.041 Radiographic dye allergy status; Z79.899 Other long term (current) drug therapy; Z79.82 Long term (current) use of aspirin; Z79.4 Long term (current) use of insulin; Z90.89 Acquired absence of other organs; Z90.710 Acquired absence of both cervix and uterus; Z82.49 Family history of ischemic heart disease and other diseases of the circulatory system
CPT/HCPCS: 36415; 36416; 70450; 71045; 71046; 78451; 78452; 80048; 80053; 81003; 81015; 83880; 84484; 85025; 85379; 93005; 93017; 93970; A9500; A9540; J1650; J1815; J2785; U0003; U0005

== ENCOUNTER 2022-11-03 16:54 | Inpatient (IN) | payer MEDICARE, OTHER ==
[2022-11-03 17:29] LABS: #Basophils 0.1 thou/uL (0.0-0.2); #Eosinphils 0.3 thou/uL (0.0-0.7); #Lymphocytes 3.3 thou/uL (1.20-3.40); #Monocytes 0.9 thou/uL (0.11-0.59); %Eosinophils 3.2 % (0.0-10.0); %Lymphocytes 34.4 % (21.0-51.0); %Monocytes 9.4 % (0.0-10.0); Hemoglobin 13.5 g/dL (12.0-16.0); Mean Corpuscular HGB CONC 33.1 g/dL (32.0-36.0); Mean Corpuscular Hemoglobin 32.4 pg (27.0-31.0); Mean Platelet Volume 9.4 fL (7.4-10.4); Platelet Count 226 10x3/uL (130-400); RBC Distribution Width 13.3 % (11.5-14.5); Red Blood Cell (RBC) Count 4.15 mill/uL (4.20-5.40); White Blood Cell (WBC) Count 9.7 10x3/uL (4.8-10.8)
[2022-11-03 17:32] LABS: PTT 30.2 sec (22.9-36.1); Prothrombin Time 13.2 sec (12.0-14.7)
[2022-11-03 17:48] LABS: ALT (SGPT) 18 U/L (8-55); AST (SGOT) 24 U/L (5-34); Alkaline Phosphatase 96 U/L (40-110); Anion Gap 17 mmol/L (10-20); BUN (Urea Nitrogen) 35 mg/dL (9.8-20.1); Bilirubin, Total 0.4 mg/dL (0.2-1.2); CK (CPK) 53 U/L (29-168); Calc. Creatinine Clearance 0 mL/min (70-130); Calcium 9.5 mg/dL (7.8-10.44); Carbon Dioxide 24 mmol/L (23-31); Chloride 99 mmol/L (98-107); Estimated GFR 37; Globulin 3.9 g/dL (2.4-3.5); Glucose 213 mg/dL (83-110); Potassium 4.7 mmol/L (3.5-5.1); Protein, Total 7.9 g/dL (5.8-8.1); Sodium 135 mmol/L (136-145)
[2022-11-03] MEDS ORDERED: Ondansetron PF 4 MG/2 ML Vial IVP PRN (21:45)
[2022-11-03] MEDS ORDERED: Dextrose 50% Abboject 50 ML SYRINGE SLOW IVP PRN (21:45)
[2022-11-03] MEDS ORDERED: hydrALAZINE 20 MG/ML VIAL SLOW IVP PRN (21:45)
[2022-11-03] MEDS ORDERED: Ondansetron ODT 4 MG TAB PO PRN (21:45)
[2022-11-03] MEDS ORDERED: Dextrose 5% in Water 1,000 ML IV PRN (21:45)
[2022-11-03] MEDS ORDERED: Acetaminophen 650 MG Suppository PR PRN (21:45)
[2022-11-03] MEDS ORDERED: HumaLOG 300 UNITS/3 ML VIAL SC PRN (21:45)
[2022-11-04] MEDS ORDERED: Ipratropium/Albuterol 3 ML NEB NEB PRN (00:35)
[2022-11-04] MEDS ORDERED: Gabapentin 100 MG CAP PO SCH (00:39)
[2022-11-04] MEDS ORDERED: Carvedilol 3.125 MG TAB PO SCH (00:45)
[2022-11-04] MEDS ORDERED: Clindamycin 150 MG CAP PO SCH (00:45)
[2022-11-04] MEDS: Acetaminophen 325 MG TAB PO PRN ×3 (02:07→20:42)
[2022-11-04 03:06] VITALS: BMI 33.9
[2022-11-04 06:07] LABS: #Eosinphils 0.3 thou/uL (0.0-0.7); #Lymphocytes 2.8 thou/uL (1.20-3.40); #Neutrophils 5.3 thou/uL (1.40-6.50); %Basophils 0.4 % (0.0-1.0); %Eosinophils 2.7 % (0.0-10.0); %Lymphocytes 29.6 % (21.0-51.0); %Monocytes 10.5 % (0.0-10.0); %Neutrophils 56.7 % (42.0-75.0); Hemoglobin 12.6 g/dL (12.0-16.0); Mean Corpuscular Hemoglobin 31.9 pg (27.0-31.0); Mean Corpuscular Volume 99.7 fl (78.0-98.0); Mean Platelet Volume 8.7 fL (7.4-10.4); Platelet Count 219 10x3/uL (130-400); RBC Distribution Width 13.2 % (11.5-14.5); Red Blood Cell (RBC) Count 3.94 mill/uL (4.20-5.40); White Blood Cell (WBC) Count 9.3 10x3/uL (4.8-10.8)
[2022-11-04 06:29] LABS: Anion Gap 13 mmol/L (10-20); BUN (Urea Nitrogen) 28 mg/dL (9.8-20.1); Calc. Creatinine Clearance 52 mL/min (70-130); Calcium 9.1 mg/dL (7.8-10.44); Carbon Dioxide 27 mmol/L (23-31); Cardiac Risk 4.3 (Less than 4.5); Chloride 104 mmol/L (98-107); Cholesterol 146 mg/dl (< 200 Desired); Estimated GFR 46; Glucose 153 mg/dL (83-110); HDL Cholesterol 34 mg/dL (>60 Neg Risk); LDL Cholesterol, Calculated 79 mg/dL; Potassium 3.7 mmol/L (3.5-5.1); Sodium 140 mmol/L (136-145); Triglycerides 165 mg/dL (Less than 150)
[2022-11-04] MEDS ORDERED: Aspirin 81 mg Enteric Coated Tablet PO SCH (09:00)
[2022-11-04] MEDS ORDERED: NIFEdipine XL 30 MG TAB PO SCH (09:00)
[2022-11-04] MEDS: Furosemide 40 MG TAB PO SCH ×2 (09:26→16:16)
[2022-11-04] MEDS: Carvedilol 3.125 MG TAB PO SCH ×2 (09:26→20:36)
[2022-11-04] MEDS: Aspirin 81 mg Enteric Coated Tablet PO SCH (09:26)
[2022-11-04] MEDS: Oxybutynin 5 MG TAB PO SCH ×2 (09:26→20:36)
[2022-11-04] MEDS: Clindamycin 150 MG CAP PO SCH ×2 (09:26→16:16)
[2022-11-04] MEDS: Docusate 100 MG CAP PO SCH (09:26)
[2022-11-04] MEDS: Losartan 25 MG TAB PO SCH (09:27)
[2022-11-04] MEDS: HumaLOG 300 UNITS/3 ML VIAL SC PRN ×2 (12:10→17:20)
[2022-11-04] MEDS ORDERED: Electrolyte Replacement Protocol 1 EACH FS SCH (19:15)
[2022-11-04] MEDS: Gabapentin 100 MG CAP PO SCH (20:36)
[2022-11-04] MEDS: Atorvastatin Calcium 40 MG TAB PO SCH (20:36)
[2022-11-05 05:45] LABS: #Basophils 0.1 thou/uL (0.0-0.2); #Eosinphils 0.3 thou/uL (0.0-0.7); #Lymphocytes 2.9 thou/uL (1.20-3.40); #Monocytes 1.1 thou/uL (0.11-0.59); #Neutrophils 4.5 thou/uL (1.40-6.50); %Basophils 0.7 % (0.0-1.0); %Eosinophils 3.6 % (0.0-10.0); %Lymphocytes 32.9 % (21.0-51.0); %Monocytes 12.4 % (0.0-10.0); %Neutrophils 50.4 % (42.0-75.0); Hemoglobin 12.9 g/dL (12.0-16.0); Mean Corpuscular HGB CONC 33.2 g/dL (32.0-36.0); Mean Corpuscular Hemoglobin 32.9 pg (27.0-31.0); Mean Corpuscular Volume 99.3 fl (78.0-98.0); Mean Platelet Volume 8.7 fL (7.4-10.4); Platelet Count 218 10x3/uL (130-400); RBC Distribution Width 13.1 % (11.5-14.5); Red Blood Cell (RBC) Count 3.92 mill/uL (4.20-5.40); White Blood Cell (WBC) Count 8.9 10x3/uL (4.8-10.8)
[2022-11-05 06:07] LABS: Anion Gap 14 mmol/L (10-20); BUN (Urea Nitrogen) 28 mg/dL (9.8-20.1); Calc. Creatinine Clearance 44 mL/min (70-130); Calcium 9.4 mg/dL (7.8-10.44); Carbon Dioxide 27 mmol/L (23-31); Chloride 101 mmol/L (98-107); Estimated GFR 37; Glucose 165 mg/dL (83-110); Magnesium 2.2 mg/dL (1.6-2.6); Potassium 3.4 mmol/L (3.5-5.1); Sodium 139 mmol/L (136-145)
[2022-11-05] MEDS: HumaLOG 300 UNITS/3 ML VIAL SC PRN ×3 (06:39→18:35)
[2022-11-05] MEDS: Docusate 100 MG CAP PO SCH (09:48)
[2022-11-05] MEDS: Multivit, Therapeutic 1 TAB PO SCH (09:48)
[2022-11-05] MEDS: Aspirin 81 mg Enteric Coated Tablet PO SCH (09:48)
[2022-11-05] MEDS: Carvedilol 3.125 MG TAB PO SCH ×2 (09:48→21:18)
[2022-11-05] MEDS: Furosemide 40 MG TAB PO SCH ×2 (09:48→14:33)
[2022-11-05] MEDS: Losartan 25 MG TAB PO SCH (09:48)
[2022-11-05] MEDS: Oxybutynin 5 MG TAB PO SCH ×2 (09:49→21:17)
[2022-11-05] MEDS ORDERED: Potassium Chloride 20 MEQ TAB PO SCH (10:00)
[2022-11-05] MEDS: Acetaminophen 325 MG TAB PO PRN (18:35)
[2022-11-05] MEDS: Heparin 5,000 UNITS/ML VIAL SC SCH (21:17)
[2022-11-05] MEDS: Gabapentin 100 MG CAP PO SCH (21:17)
[2022-11-05] MEDS: Atorvastatin Calcium 40 MG TAB PO SCH (21:18)
[2022-11-05] MEDS: Melatonin 3 MG TAB PO SCH (21:18)
[2022-11-06 05:37] LABS: Anion Gap 15 mmol/L (10-20); BUN (Urea Nitrogen) 31 mg/dL (9.8-20.1); Calc. Creatinine Clearance 48 mL/min (70-130); Calcium 9.9 mg/dL (7.8-10.44); Carbon Dioxide 25 mmol/L (23-31); Chloride 102 mmol/L (98-107); Estimated GFR 42; Glucose 178 mg/dL (83-110); Potassium 3.9 mmol/L (3.5-5.1); Sodium 138 mmol/L (136-145)
[2022-11-06] MEDS: Aspirin 325 mg Enteric Coated Tablet PO SCH (08:55)
[2022-11-06] MEDS: Furosemide 40 MG TAB PO SCH (08:55)
[2022-11-06] MEDS: Carvedilol 3.125 MG TAB PO SCH ×2 (08:56→21:34)
[2022-11-06] MEDS: Oxybutynin 5 MG TAB PO SCH ×2 (08:56→21:34)
[2022-11-06] MEDS: Losartan 25 MG TAB PO SCH (08:56)
[2022-11-06] MEDS: Docusate 100 MG CAP PO SCH (08:56)
[2022-11-06] MEDS: Multivit, Therapeutic 1 TAB PO SCH (08:56)
[2022-11-06] MEDS: Heparin 5,000 UNITS/ML VIAL SC SCH ×2 (08:56→21:34)
[2022-11-06] MEDS: HumaLOG 300 UNITS/3 ML VIAL SC PRN (18:52)
[2022-11-06 20:15] LABS: Bacteria/HPF 4+ HPF (None Seen); Bilirubin Negative (Negative); Blood, Urine Negative (Negative); Clarity Clear (Clear); Glucose, Urine (Dipstick) Normal (Negative); Ketone, Urine Negative (Negative); Leukocyte 500 Leu/uL (Negative); Nitrite Negative (Negative); Protein, Urine (Dipstick) Negative (Neg-Trace); RBC/HPF 0-3 HPF (0-3); Specific Gravity, Urine 1.005 (1.002-1.036); Squamous Epithelial 0-3 HPF (0-3); Urobilinogen Normal mg/dL (Less than 2); WBC/HPF 21-50 HPF (0-3)
[2022-11-06] MEDS: Atorvastatin Calcium 40 MG TAB PO SCH (21:34)
[2022-11-06] MEDS: Melatonin 3 MG TAB PO SCH (21:34)
[2022-11-06] MEDS: Gabapentin 100 MG CAP PO SCH (21:34)
[2022-11-07] MEDS: Acetaminophen 325 MG TAB PO PRN ×2 (00:34→14:09)
[2022-11-07 05:59] LABS: #Basophils 0.1 thou/uL (0.0-0.2); #Eosinphils 0.3 thou/uL (0.0-0.7); #Lymphocytes 3.6 thou/uL (1.20-3.40); #Monocytes 0.9 thou/uL (0.11-0.59); #Neutrophils 4.2 thou/uL (1.40-6.50); %Eosinophils 3.1 % (0.0-10.0); %Lymphocytes 39.7 % (21.0-51.0); %Monocytes 10.1 % (0.0-10.0); %Neutrophils 46.1 % (42.0-75.0); Mean Corpuscular HGB CONC 33.6 g/dL (32.0-36.0); Mean Corpuscular Hemoglobin 32.9 pg (27.0-31.0); Mean Platelet Volume 9.3 fL (7.4-10.4); Platelet Count 197 10x3/uL (130-400); RBC Distribution Width 13.3 % (11.5-14.5); Red Blood Cell (RBC) Count 3.95 mill/uL (4.20-5.40); White Blood Cell (WBC) Count 9.2 10x3/uL (4.8-10.8)
[2022-11-07 06:14] LABS: Anion Gap 12 mmol/L (10-20); BUN (Urea Nitrogen) 38 mg/dL (9.8-20.1); Calc. Creatinine Clearance 51 mL/min (70-130); Calcium 9.9 mg/dL (7.8-10.44); Carbon Dioxide 26 mmol/L (23-31); Chloride 102 mmol/L (98-107); Estimated GFR 45; Glucose 163 mg/dL (83-110); Potassium 3.9 mmol/L (3.5-5.1); Sodium 136 mmol/L (136-145)
[2022-11-07] MEDS: Heparin 5,000 UNITS/ML VIAL SC SCH (08:44)
[2022-11-07] MEDS: Oxybutynin 5 MG TAB PO SCH (08:45)
[2022-11-07] MEDS: Aspirin 325 mg Enteric Coated Tablet PO SCH (08:45)
[2022-11-07] MEDS: Carvedilol 3.125 MG TAB PO SCH (08:45)
[2022-11-07] MEDS: Furosemide 40 MG TAB PO SCH (08:45)
[2022-11-07] MEDS: Multivit, Therapeutic 1 TAB PO SCH (08:45)
[2022-11-07] MEDS: Docusate 100 MG CAP PO SCH (08:45)
[2022-11-07] MEDS ORDERED: Losartan 25 MG TAB PO SCH (09:00)
[2022-11-07] MEDS ORDERED: cefTRIAXone\\ROCEPHIN 1 GM in Sodium Chloride 0.9% 100 ML IVPB SCH (09:00)
[2022-11-07] MEDS ORDERED: Insulin Glargine 30 UNITS/0.3 ML VIAL SC SCH (11:30)
[2022-11-07 12:05] VITALS: BP 110/50; TEMP 98.1
== END 2022-11-07 15:10 | disposition home or self-care (01) | DRG 65 ==
LOC: ERS 16:54 → NEURO 20:55 → OBSVTOIN 11-05 10:34
PROVIDERS: ADMIT Student in an Organized Health Care Education/Training Program; ATTEND Internal Medicine
DX: I63.89 Other cerebral infarction (principal); G81.94 Hemiplegia, unspecified affecting left nondominant side; I13.0 Hypertensive heart and chronic kidney disease with heart failure and stage 1 through stage 4 chronic kidney disease, or unspecified chronic kidney disease; N17.9 Acute kidney failure, unspecified; I48.19 Other persistent atrial fibrillation; I42.9 Cardiomyopathy, unspecified; R47.01 Aphasia; E11.22 Type 2 diabetes mellitus with diabetic chronic kidney disease; N18.30 Chronic kidney disease, stage 3 unspecified; M79.7 Fibromyalgia; D63.1 Anemia in chronic kidney disease; R29.711 NIHSS score 11; I50.9 Heart failure, unspecified; Z88.1 Allergy status to other antibiotic agents; Z79.899 Other long term (current) drug therapy; Z90.710 Acquired absence of both cervix and uterus; Z95.810 Presence of automatic (implantable) cardiac defibrillator; Z87.891 Personal history of nicotine dependence
CPT/HCPCS: 36415; 36416; 70450; 80048; 80053; 80061; 81001; 82550; 82607; 83735; 84484; 85025; 85610; 85730; 87077; 87086; 87186; 93005; 93306; 93880; G0378; J0696; J1644; J1815; J3490

== ENCOUNTER 2023-03-23 08:16 | Outpatient (CLI) | payer OTHER | END 2023-03-23 08:17 | disposition home or self-care (01) | LOC: RAD 08:16 | PROVIDERS: ATTEND Physician Assistant Medical | DX: R13.10 Dysphagia, unspecified (principal); I69.30 Unspecified sequelae of cerebral infarction | CPT/HCPCS: 74230 ==

== ENCOUNTER 2023-04-07 19:11 | Inpatient (IN) | payer OTHER ==
[~2023-04-07 19:11] MED LIST: Iopamidol-370 76% 500 ML MDV (1 ML CHARGE) ONE
[2023-04-07 20:07] LABS: #Eosinphils 0.1 thou/uL (0.0-0.7); #Neutrophils 7.4 thou/uL (1.40-6.50); %Basophils 0.2 % (0.0-1.0); %Eosinophils 0.6 % (0.0-10.0); %Monocytes 0.4 % (0.0-10.0); %Neutrophils 91.6 % (42.0-75.0); Hematocrit 44.9 % (36.0-47.0); Hemoglobin 14.5 g/dL (12.0-16.0); Mean Corpuscular HGB CONC 32.3 g/dL (32.0-36.0); Mean Corpuscular Hemoglobin 32.3 pg (27.0-31.0); Mean Platelet Volume 10.5 fL (7.4-10.4); Platelet Count 276 10x3/uL (130-400); RBC Distribution Width 13.1 % (11.5-14.5); Red Blood Cell (RBC) Count 4.49 mill/uL (4.20-5.40); White Blood Cell (WBC) Count 8.1 10x3/uL (4.8-10.8)
[2023-04-07 20:37] LABS: ALT (SGPT) 211 U/L (8-55); AST (SGOT) 287 U/L (5-34); Albumin 4.6 g/dL (3.4-4.8); Alkaline Phosphatase 136 U/L (40-110); Anion Gap 20 mmol/L (10-20); BUN (Urea Nitrogen) 41 mg/dL (9.8-20.1); Bilirubin, Total 1.3 mg/dL (0.2-1.2); Calc. Creatinine Clearance 0 mL/min (70-130); Calcium 10.9 mg/dL (7.8-10.44); Carbon Dioxide 24 mmol/L (23-31); Chloride 103 mmol/L (98-107); Estimated GFR 43; Globulin 3.8 g/dL (2.4-3.5); Glucose 136 mg/dL (83-110); Magnesium 2.1 mg/dL (1.6-2.6); Potassium 4.6 mmol/L (3.5-5.1); Protein, Total 8.4 g/dL (5.8-8.1); Sodium 142 mmol/L (136-145)
[2023-04-07 20:40] LABS: Troponin I 0.021 ng/mL (< 0.028)
[2023-04-07 20:50] LABS: Lipase 6115 U/L (8-78)
[2023-04-07] MEDS ORDERED: diphenhydrAMINE 50 MG/ML VIAL ONE (21:26)
[2023-04-07] MEDS ORDERED: methylPREDNISolone Sod Succ/PF 125 MG/2 ML VIAL ONE (21:26)
[2023-04-07] MEDS ORDERED: Famotidine/PF 20 mg/2ml Vial ONE (21:26)
[2023-04-07] MEDS ORDERED: Cefepime 2 GM VIAL ONE (23:15)
[2023-04-07] MEDS ORDERED: Dextrose 50% Abboject 50 ML SYRINGE SLOW IVP PRN (23:24)
[2023-04-07] MEDS ORDERED: Glucagon 1 MG/ML KIT IM PRN (23:24)
[2023-04-07] MEDS ORDERED: Dextrose 5% in Water 1,000 ML IV PRN (23:24)
[2023-04-07] MEDS ORDERED: Sodium Chloride 0.45% 500 ML IV SCH (23:30)
[2023-04-07] MEDS ORDERED: Ondansetron PF 4 MG/2 ML Vial IVP PRN (23:52)
[2023-04-08] MEDS ORDERED: metroNIDAZOLE 500 MG/100 ML BAG ONE (00:24)
[2023-04-08 00:48] LABS: Hemoglobin A1c 6.7 % (4.0-6.0)
[2023-04-08 01:25] VITALS: BMI 32.9
[2023-04-08] MEDS: Sodium Chloride 0.45% 1,000 ML IV SCH ×3 (02:17→17:19)
[2023-04-08] MEDS: LevoFLOXacin 500 mg/D5W 500 MG in Premix Bag 1 BAG IVPB SCH (03:40)
[2023-04-08 04:59] LABS: #Basophils 0.1 thou/uL (0.0-0.2); #Eosinphils 0.1 thou/uL (0.0-0.7); #Monocytes 1.6 thou/uL (0.11-0.59); #Neutrophils 25.6 thou/uL (1.40-6.50); %Basophils 0.3 % (0.0-1.0); %Eosinophils 0.2 % (0.0-10.0); %Lymphocytes 2.8 % (21.0-51.0); %Monocytes 5.5 % (0.0-10.0); Hematocrit 38.2 % (36.0-47.0); Hemoglobin 12.4 g/dL (12.0-16.0); Mean Corpuscular HGB CONC 32.5 g/dL (32.0-36.0); Mean Corpuscular Hemoglobin 32.5 pg (27.0-31.0); Platelet Count 227 10x3/uL (130-400); RBC Distribution Width 13.5 % (11.5-14.5); Red Blood Cell (RBC) Count 3.82 mill/uL (4.20-5.40)
[2023-04-08 05:11] LABS: Manual Diff?? YES
[2023-04-08] MEDS: Morphine 2 MG/ML VIAL SLOW IVP PRN ×3 (05:17→20:36)
[2023-04-08 05:22] LABS: ALT (SGPT) 255 U/L (8-55); AST (SGOT) 221 U/L (5-34); Albumin 3.6 g/dL (3.4-4.8); Alkaline Phosphatase 116 U/L (40-110); Anion Gap 17 mmol/L (10-20); BUN (Urea Nitrogen) 42 mg/dL (9.8-20.1); Bilirubin, Total 0.8 mg/dL (0.2-1.2); Calc. Creatinine Clearance 42 mL/min (70-130); Calcium 9.3 mg/dL (7.8-10.44); Carbon Dioxide 21 mmol/L (23-31); Chloride 104 mmol/L (98-107); Estimated GFR 37; Globulin 2.9 g/dL (2.4-3.5); Glucose 180 mg/dL (83-110); Magnesium 1.9 mg/dL (1.6-2.6); Potassium 4.3 mmol/L (3.5-5.1); Protein, Total 6.5 g/dL (5.8-8.1); Sodium 138 mmol/L (136-145)
[2023-04-08 05:36] LABS: Lipase 1635 U/L (8-78)
[2023-04-08 06:08] LABS: Anisocytosis SLIGHT = 6-15 cells HPF (0-5); Band 21 % (5-11); CellaVision Operator ID lab.sh2; Lymphocytes 3 % (21-51); Macrocytosis MODERATE=16-30 cells HPF (0-5); Monocytes 2 % (0-10); Neutrophil 75 % (42-75); Ovalocytes SLIGHT = 2-5 cells HPF (0-1); Platelet Adequacy Comment Platelets Normal; Polychromasia SLIGHT = 2-3 cells HPF (0-2); Smudge Cells 3.9 %; Total Cell Count 102
[2023-04-08] MEDS: Pantoprazole 40 MG VIAL IVP SCH (09:03)
[2023-04-08] MEDS ORDERED: Acetaminophen 500 MG TAB PO SCH (11:45)
[2023-04-08] MEDS ORDERED: Scopolamine 1.5 mg/72 hour Patch TD SCH (12:00)
[2023-04-08] MEDS: Acetaminophen 500 MG TAB PO SCH ×2 (18:01→23:35)
[2023-04-09] MEDS: LevoFLOXacin 500 mg/D5W 500 MG in Premix Bag 1 BAG IVPB SCH (01:29)
[2023-04-09] MEDS: Sodium Chloride 0.45% 1,000 ML IV SCH ×3 (01:29→16:04)
[2023-04-09] MEDS: Morphine 2 MG/ML VIAL SLOW IVP PRN (01:30)
[2023-04-09] MEDS: Morphine 4 MG/ML VIAL SLOW IVP PRN ×2 (04:57→17:56)
[2023-04-09 05:09] LABS: #Basophils 0.1 thou/uL (0.0-0.2); #Eosinphils 0.1 thou/uL (0.0-0.7); #Monocytes 0.9 thou/uL (0.11-0.59); #Neutrophils 14.7 thou/uL (1.40-6.50); %Basophils 0.3 % (0.0-1.0); %Eosinophils 0.5 % (0.0-10.0); %Lymphocytes 6.6 % (21.0-51.0); %Neutrophils 86.4 % (42.0-75.0); Hemoglobin 12.4 g/dL (12.0-16.0); Mean Corpuscular Hemoglobin 32.5 pg (27.0-31.0); Mean Corpuscular Volume 104.7 fl (78.0-98.0); Mean Platelet Volume 10.9 fL (7.4-10.4); Platelet Count 184 10x3/uL (130-400); Red Blood Cell (RBC) Count 3.82 mill/uL (4.20-5.40); White Blood Cell (WBC) Count 17.1 10x3/uL (4.8-10.8)
[2023-04-09 05:38] LABS: ALT (SGPT) 183 U/L (8-55); AST (SGOT) 103 U/L (5-34); Albumin 3.5 g/dL (3.4-4.8); Alkaline Phosphatase 111 U/L (40-110); Anion Gap 14 mmol/L (10-20); BUN (Urea Nitrogen) 34 mg/dL (9.8-20.1); Bilirubin, Total 0.6 mg/dL (0.2-1.2); Calc. Creatinine Clearance 49 mL/min (70-130); Carbon Dioxide 21 mmol/L (23-31); Chloride 104 mmol/L (98-107); Estimated GFR 44; Globulin 3.1 g/dL (2.4-3.5); Glucose 119 mg/dL (83-110); Lipase 99 U/L (8-78); Potassium 4.3 mmol/L (3.5-5.1); Protein, Total 6.6 g/dL (5.8-8.1); Sodium 135 mmol/L (136-145)
[2023-04-09] MEDS: Pantoprazole 40 MG VIAL IVP SCH (09:13)
[2023-04-09] MEDS: Acetaminophen 500 MG TAB PO SCH ×3 (09:13→21:02)
[2023-04-09] MEDS ORDERED: Iopamidol 15 ML ONE (11:47)
[2023-04-09] MEDS ORDERED: Glucagon 1 MG/ML KIT ONE (11:47)
[2023-04-09] MEDS ORDERED: EPINEPHrine 1 MG/ML AMP ONE (11:47)
[2023-04-09] MEDS ORDERED: Bupivacaine PF 0.5% 30 ML VIAL ONE (11:47)
[2023-04-09] MEDS ORDERED: fentaNYL PF 100 MCG/2 ML SYRINGE ONE (11:49)
[2023-04-09] MEDS ORDERED: Glycopyrrolate 0.2 MG/ML 5 ML SYRINGE ONE (12:08)
[2023-04-09] MEDS ORDERED: Rocuronium Bromide 10 MG/ML (10ML VIAL) ONE (12:08)
[2023-04-09] MEDS ORDERED: NEOSTIGMINE 3 MG/3 ML SYR 3 MG/3 ML SYRINGE ONE (12:08)
[2023-04-09] MEDS ORDERED: Dexamethasone 20 MG/5 ML VIAL ONE (12:08)
[2023-04-09] MEDS ORDERED: Lidocaine 1% PF 5 ML VIAL ONE (12:08)
[2023-04-09] MEDS ORDERED: Ondansetron PF 4 MG/2 ML Vial ONE (12:08)
[2023-04-09] MEDS ORDERED: PROPOFOL 200 MG/20 ML VIAL ONE (12:08)
[2023-04-09] MEDS ORDERED: SUGAMMADEX SODIUM 200 MG/2 ML VIAL ONE (13:06)
[2023-04-09] MEDS ORDERED: Ondansetron HCl/PF 4 MG/2 ML Vial IVP PRN (13:20)
[2023-04-09] MEDS ORDERED: Promethazine HCl 25 MG/ML VIAL IM PRN (13:20)
[2023-04-09] MEDS ORDERED: traMADol HCl 50 MG TAB PO PRN (13:25)
[2023-04-09] MEDS ORDERED: Ibuprofen 600 MG TAB PO PRN (13:25)
[2023-04-09] MEDS ORDERED: fentaNYL 50 mcg/mL 1 mL Vial ONE ×2 (13:28→13:39)
[2023-04-09] MEDS ORDERED: Loratadine 10 MG TAB PO PRN (13:28)
[2023-04-09] MEDS ORDERED: Acetaminophen 500 MG TAB PO SCH ×2 (13:30→15:00)
[2023-04-09] MEDS ORDERED: Glucagon 1 MG/ML KIT IM PRN (14:30)
[2023-04-09] MEDS ORDERED: Dextrose 50% Abboject 50 ML SYRINGE SLOW IVP PRN (14:30)
[2023-04-09] MEDS ORDERED: Dextrose 5% in Water 1,000 ML IV PRN (14:30)
[2023-04-09] MEDS: traMADol HCl 50 MG TAB PO SCH ×2 (15:17→20:57)
[2023-04-09] MEDS: HumaLOG 300 UNITS/3 ML VIAL SC PRN (17:49)
[2023-04-09] MEDS: Furosemide 40 MG TAB PO SCH (20:56)
[2023-04-09] MEDS: Gabapentin 300 MG CAP PO SCH (20:56)
[2023-04-09] MEDS: Melatonin 3 MG TAB PO SCH (20:56)
[2023-04-09] MEDS: diphenhydrAMINE 25 MG CAP PO SCH (20:57)
[2023-04-09] MEDS: Atorvastatin Calcium 40 MG TAB PO SCH (20:57)
[2023-04-09] MEDS: Carvedilol 3.125 MG TAB PO SCH (20:57)
[2023-04-09] MEDS: Oxybutynin 5 MG TAB PO SCH (20:58)
[2023-04-09] MEDS ORDERED: LevoFLOXacin 250 mg/D5W 250 MG in Premix Bag 1 BAG IVPB SCH (23:59)
[2023-04-10] MEDS: Sodium Chloride 0.45% 1,000 ML IV SCH ×2 (01:30→08:39)
[2023-04-10] MEDS: Acetaminophen 500 MG TAB PO SCH ×4 (03:19→21:31)
[2023-04-10] MEDS: HumaLOG 300 UNITS/3 ML VIAL SC PRN ×3 (05:51→21:37)
[2023-04-10 05:59] LABS: #Neutrophils 13.2 thou/uL (1.40-6.50); %Basophils 0.1 % (0.0-1.0); %Lymphocytes 6.9 % (21.0-51.0); %Monocytes 6.2 % (0.0-10.0); %Neutrophils 86.1 % (42.0-75.0); Hematocrit 37.2 % (36.0-47.0); Hemoglobin 11.5 g/dL (12.0-16.0); Mean Corpuscular HGB CONC 30.9 g/dL (32.0-36.0); Mean Corpuscular Hemoglobin 31.7 pg (27.0-31.0); Mean Corpuscular Volume 102.5 fl (78.0-98.0); Platelet Count 187 10x3/uL (130-400); RBC Distribution Width 13.5 % (11.5-14.5); Red Blood Cell (RBC) Count 3.63 mill/uL (4.20-5.40); White Blood Cell (WBC) Count 15.3 10x3/uL (4.8-10.8)
[2023-04-10 06:20] LABS: ALT (SGPT) 160 U/L (8-55); AST (SGOT) 92 U/L (5-34); Albumin 3.3 g/dL (3.4-4.8); Alkaline Phosphatase 113 U/L (40-110); Anion Gap 11 mmol/L (10-20); BUN (Urea Nitrogen) 30 mg/dL (9.8-20.1); Bilirubin, Total 0.5 mg/dL (0.2-1.2); Calc. Creatinine Clearance 46 mL/min (70-130); Calcium 8.9 mg/dL (7.8-10.44); Carbon Dioxide 24 mmol/L (23-31); Chloride 106 mmol/L (98-107); Estimated GFR 41; Glucose 178 mg/dL (83-110); Lipase 12 U/L (8-78); Potassium 4.3 mmol/L (3.5-5.1); Protein, Total 6.3 g/dL (5.8-8.1); Sodium 137 mmol/L (136-145)
[2023-04-10] MEDS: Potassium Chloride 20 MEQ TAB PO SCH (08:33)
[2023-04-10] MEDS: Polyethylene Glycol 3350 17 GM Packet PO SCH (08:33)
[2023-04-10] MEDS: NIFEdipine XL 30 MG TAB PO SCH (08:34)
[2023-04-10] MEDS: Aspirin 81 mg Enteric Coated Tablet PO SCH (08:34)
[2023-04-10] MEDS: Clopidogrel Bisulfate 75 MG TAB PO SCH (08:34)
[2023-04-10] MEDS: Losartan 25 MG TAB PO SCH (08:34)
[2023-04-10] MEDS: Pantoprazole 40 MG VIAL IVP SCH (08:35)
[2023-04-10] MEDS: traMADol HCl 50 MG TAB PO SCH ×3 (08:35→21:21)
[2023-04-10] MEDS: Carvedilol 3.125 MG TAB PO SCH ×2 (08:35→21:23)
[2023-04-10] MEDS: Multivit, Therapeutic 1 TAB PO SCH (08:35)
[2023-04-10] MEDS: Furosemide 40 MG TAB PO SCH ×2 (08:35→21:23)
[2023-04-10] MEDS: Oxybutynin 5 MG TAB PO SCH ×2 (08:39→21:26)
[2023-04-10] MEDS: diphenhydrAMINE 25 MG CAP PO SCH ×2 (21:21→21:22)
[2023-04-10] MEDS: Melatonin 3 MG TAB PO SCH (21:21)
[2023-04-10] MEDS: Gabapentin 300 MG CAP PO SCH (21:23)
[2023-04-10] MEDS: Atorvastatin Calcium 40 MG TAB PO SCH (21:23)
[2023-04-11] MEDS: Acetaminophen 500 MG TAB PO SCH ×2 (02:00→08:29)
[2023-04-11 04:13] LABS: #Eosinphils 0.2 thou/uL (0.0-0.7); #Monocytes 1.3 thou/uL (0.11-0.59); #Neutrophils 9.7 thou/uL (1.40-6.50); %Basophils 0.2 % (0.0-1.0); %Eosinophils 1.3 % (0.0-10.0); %Lymphocytes 12.8 % (21.0-51.0); %Monocytes 9.7 % (0.0-10.0); %Neutrophils 75.3 % (42.0-75.0); Hematocrit 36.3 % (36.0-47.0); Hemoglobin 11.3 g/dL (12.0-16.0); Mean Corpuscular HGB CONC 31.1 g/dL (32.0-36.0); Mean Corpuscular Volume 102.8 fl (78.0-98.0); Mean Platelet Volume 11.6 fL (7.4-10.4); Platelet Count 176 10x3/uL (130-400); RBC Distribution Width 13.7 % (11.5-14.5); Red Blood Cell (RBC) Count 3.53 mill/uL (4.20-5.40); White Blood Cell (WBC) Count 12.9 10x3/uL (4.8-10.8)
[2023-04-11 04:38] LABS: ALT (SGPT) 129 U/L (8-55); AST (SGOT) 59 U/L (5-34); Albumin 3.2 g/dL (3.4-4.8); Alkaline Phosphatase 117 U/L (40-110); Anion Gap 12 mmol/L (10-20); BUN (Urea Nitrogen) 36 mg/dL (9.8-20.1); Bilirubin, Total 0.6 mg/dL (0.2-1.2); Calc. Creatinine Clearance 45 mL/min (70-130); Calcium 8.9 mg/dL (7.8-10.44); Carbon Dioxide 26 mmol/L (23-31); Cardiac Risk 3.3 (Less than 4.5); Chloride 102 mmol/L (98-107); Cholesterol 111 mg/dl (< 200 Desired); Estimated GFR 40; Globulin 3.2 g/dL (2.4-3.5); Glucose 133 mg/dL (83-110); HDL Cholesterol 34 mg/dL (>60 Neg Risk); LDL Cholesterol, Calculated 55 mg/dL; Protein, Total 6.4 g/dL (5.8-8.1); Sodium 136 mmol/L (136-145); Triglycerides 110 mg/dL (Less than 150)
[2023-04-11 07:35] VITALS: BP 117/56; TEMP 99.1
[2023-04-11] MEDS: Aspirin 81 mg Enteric Coated Tablet PO SCH (08:33)
[2023-04-11] MEDS: Carvedilol 3.125 MG TAB PO SCH (08:34)
[2023-04-11] MEDS: Furosemide 40 MG TAB PO SCH (08:35)
[2023-04-11] MEDS: Multivit, Therapeutic 1 TAB PO SCH (08:35)
[2023-04-11] MEDS: Clopidogrel Bisulfate 75 MG TAB PO SCH (08:35)
[2023-04-11] MEDS: NIFEdipine XL 30 MG TAB PO SCH (08:35)
[2023-04-11] MEDS: Losartan 25 MG TAB PO SCH (08:35)
[2023-04-11] MEDS: Potassium Chloride 20 MEQ TAB PO SCH (08:36)
[2023-04-11] MEDS: Oxybutynin 5 MG TAB PO SCH (08:36)
[2023-04-11] MEDS: traMADol HCl 50 MG TAB PO SCH (08:37)
[2023-04-11] MEDS: Polyethylene Glycol 3350 17 GM Packet PO SCH (08:40)
== END 2023-04-11 11:07 | disposition home or self-care (01) | DRG 417 ==
LOC: ERS 19:11 → SUATTDRO 19:11 → 2NO 22:57
PROVIDERS: ADMIT Family Medicine; ATTEND Family Medicine
PROC: 0FT44ZZ Resection of Gallbladder, Percutaneous Endoscopic Approach (ICD-10-PCS; principal; 2023-04-09)
PROC: BF131ZZ Fluoroscopy of Gallbladder and Bile Ducts using Low Osmolar Contrast (ICD-10-PCS; 2023-04-09)
DX: K80.12 Calculus of gallbladder with acute and chronic cholecystitis without obstruction (principal); K85.90 Acute pancreatitis without necrosis or infection, unspecified; I13.0 Hypertensive heart and chronic kidney disease with heart failure and stage 1 through stage 4 chronic kidney disease, or unspecified chronic kidney disease; N17.9 Acute kidney failure, unspecified; I48.11 Longstanding persistent atrial fibrillation; I50.22 Chronic systolic (congestive) heart failure; Z86.73 Personal history of transient ischemic attack (TIA), and cerebral infarction without residual deficits; I25.10 Atherosclerotic heart disease of native coronary artery without angina pectoris; E11.22 Type 2 diabetes mellitus with diabetic chronic kidney disease; Z91.041 Radiographic dye allergy status; Z88.1 Allergy status to other antibiotic agents; Z88.8 Allergy status to other drugs, medicaments and biological substances; Z79.899 Other long term (current) drug therapy; Z90.710 Acquired absence of both cervix and uterus; M06.9 Rheumatoid arthritis, unspecified; K42.9 Umbilical hernia without obstruction or gangrene; N18.31 Chronic kidney disease, stage 3a
CPT/HCPCS: 36415; 36416; 47532; 71045; 74177; 76705; 80053; 80061; 83036; 83690; 83735; 83880; 84484; 85025; 88304; 93005; 96365; 96375; C1889; C9113; J0171; J0692; J1100; J1200; J1611; J1815; J1956; J2270; J2272; J2405; J2704; J2930; J3010; Q9967; S0020; S0028

== ENCOUNTER 2023-07-11 05:31 | Day surgery (SDC) | payer OTHER ==
[2023-07-06 11:21] VITALS: BMI 33.6
[2023-07-06 11:41] LABS: Hemoglobin 12.8 g/dL (12.0-15.5); Mean Corpuscular HGB CONC 32.8 g/dL (32.0-36.0); Mean Corpuscular Hemoglobin 32.7 pg (27.0-33.0); Mean Corpuscular Volume 99.7 fl (81.6-98.3); Platelet Count 265 10x3/uL (150-450); RBC Distribution Width 13.7 % (11.5-14.5); Red Blood Cell (RBC) Count 3.91 10x6/uL (3.90-5.03)
[2023-07-06 12:15] LABS: PTT 26.9 sec (22.0-33.0); Prothrombin Time 10.3 sec (9.5-12.1)
[2023-07-06 12:38] LABS: Anion Gap 15 mmol/L (10-20); BUN (Urea Nitrogen) 56 mg/dL (9.8-20.1); Calc. Creatinine Clearance 45 mL/min (70-130); Calcium 9.3 mg/dL (7.8-10.44); Carbon Dioxide 23 mmol/L (23-31); Chloride 103 mmol/L (98-107); Estimated GFR 40; Glucose 112 mg/dL (83-110); Potassium 4.7 mmol/L (3.5-5.1); Sodium 136 mmol/L (136-145)
[2023-07-11] MEDS ORDERED: Lidocaine 1% PF 5 ML VIAL ONE (07:27)
[2023-07-11] MEDS ORDERED: Etomidate 40 MG (20 mL) VIAL ONE (07:27)
[2023-07-11] MEDS ORDERED: Ketamine In 0.9 % NaCl 50 MG/5 ML SYRINGE ONE (07:28)
== END 2023-07-11 09:55 | disposition home or self-care (01) ==
LOC: SDC 05:31
PROVIDERS: ATTEND Internal Medicine Cardiovascular Disease
PROC: B24BZZ4 Ultrasonography of Heart with Aorta, Transesophageal (ICD-10-PCS; principal; 2023-07-11)
DX: I48.19 Other persistent atrial fibrillation (principal); I11.0 Hypertensive heart disease with heart failure; I50.9 Heart failure, unspecified; K81.9 Cholecystitis, unspecified; Z88.1 Allergy status to other antibiotic agents; Z88.8 Allergy status to other drugs, medicaments and biological substances; Z86.73 Personal history of transient ischemic attack (TIA), and cerebral infarction without residual deficits
CPT/HCPCS: 80048; 85027; 85610; 85730; 93312; J3490

== ENCOUNTER 2024-01-23 10:55 | Emergency (ER) | payer OTHER ==
[2024-01-23] MEDS ORDERED: Morphine 4 MG/ML VIAL ONE (11:35)
[2024-01-23 11:40] LABS: #Basophils 0.05 10x3/uL (0.0-0.2); %Basophils 0.6 % (0.0-1.0); %Eosinophils 1.8 % (0.0-10.0); %Lymphocytes 26.2 % (21.0-51.0); %Monocytes 9.4 % (0.0-10.0); %Neutrophils 61.7 % (42.0-75.0); Hematocrit 43.6 % (36.0-47.0); Hemoglobin 14.3 g/dL (12.0-16.0); Mean Corpuscular HGB CONC 32.8 g/dL (32.0-36.0); Mean Corpuscular Hemoglobin 33.1 pg (27.0-31.0); Mean Corpuscular Volume 100.9 fL (78.0-98.0); Mean Platelet Volume 10.7 fL (7.4-10.4); Platelet Count 223 10x3/uL (130-400); RBC Distribution Width 12.8 % (11.5-14.5); Red Blood Cell (RBC) Count 4.32 mill/uL (4.20-5.40)
[2024-01-23 11:55] LABS: ALT (SGPT) 20 U/L (8-55); AST (SGOT) 22 U/L (5-34); Albumin 3.9 g/dL (3.4-4.8); Alkaline Phosphatase 87 U/L (40-110); Anion Gap 17 mmol/L (10-20); BUN (Urea Nitrogen) 32 mg/dL (9.8-20.1); Bilirubin, Total 0.5 mg/dL (0.2-1.2); Calc. Creatinine Clearance 0 mL/min (70-130); Carbon Dioxide 23 mmol/L (23-31); Chloride 104 mmol/L (98-107); Estimated GFR 44; Globulin 3.5 g/dL (2.4-3.5); Glucose 186 mg/dL (83-110); Lipase 18 U/L (8-78); Potassium 4.2 mmol/L (3.5-5.1); Protein, Total 7.4 g/dL (5.8-8.1); Sodium 140 mmol/L (136-145)
[2024-01-23 12:33] LABS: Calcium 9.7 mg/dL (7.8-10.44)
[2024-01-23 13:57] LABS: Bilirubin Negative (Negative); Blood, Urine Negative (Negative); CAUTI Indications for Culture Pelvic or flank pain; Glucose, Urine (Dipstick) Normal (Negative); Ketone, Urine Negative (Negative); Leukocyte 500 Leu/uL (Negative); Nitrite Negative (Negative); Protein, Urine (Dipstick) 100 mg/dL (Neg-Trace); RBC/HPF 0-3 HPF (0-3); Specific Gravity, Urine 1.015 (1.002-1.036); Urobilinogen Normal mg/dL (Less than 2); WBC/HPF 21-50 HPF (0-3)
[2024-01-23 14:06] LABS: Bacteria/HPF 1+ HPF (None Seen); Clarity Slightly Cloudy (Clear)
[2024-01-23 14:08] LABS: Urine Culture Reflex Yes Yes
[2024-01-23] MEDS ORDERED: Morphine 2 MG/ML VIAL ONE (14:59)
[2024-01-23] MEDS ORDERED: Sulfameth/Trimethoprim DS 800-160mg TAB ONE (16:45)
[2024-01-23] MEDS ORDERED: Senokot S 8.6-50 MG TAB ONE (19:15)
[2024-01-23] MEDS ORDERED: Docusate 100 MG CAP PO SCH (19:15)
== END 2024-01-23 19:30 | disposition home or self-care (01) ==
LOC: ERS 10:55
DX: N39.0 Urinary tract infection, site not specified (principal); I13.0 Hypertensive heart and chronic kidney disease with heart failure and stage 1 through stage 4 chronic kidney disease, or unspecified chronic kidney disease; E11.22 Type 2 diabetes mellitus with diabetic chronic kidney disease; N18.30 Chronic kidney disease, stage 3 unspecified; I50.9 Heart failure, unspecified; I25.10 Atherosclerotic heart disease of native coronary artery without angina pectoris; I48.91 Unspecified atrial fibrillation; Z86.73 Personal history of transient ischemic attack (TIA), and cerebral infarction without residual deficits
CPT/HCPCS: 71045; 74176; 80053; 81001; 83690; 85025; 87077; 87086; 93005; 96372; 99285; J2272; 36415; J2270

== ENCOUNTER 2024-01-31 16:22 | Inpatient (IN) | payer OTHER ==
[2024-01-31 17:32] LABS: Eosinophils 1 % (0-10); Lymphocytes 28 % (21-51); Monocytes 12 % (0-10); Neutrophil 56 % (42-75); Platelet Adequacy Comment Platelets Normal; RBC Morphology Within Normal Limits; Reactive Lymphocytes 3 % (0-10)
[2024-01-31 17:33] LABS: ALT (SGPT) 45 U/L (8-55); AST (SGOT) 42 U/L (5-34); Albumin 3.5 g/dL (3.4-4.8); Alkaline Phosphatase 86 U/L (40-110); Anion Gap 15 mmol/L (10-20); BUN (Urea Nitrogen) 46 mg/dL (9.8-20.1); Calc. Creatinine Clearance 0 mL/min (70-130); Calcium 9.6 mg/dL (7.8-10.44); Carbon Dioxide 27 mmol/L (23-31); Chloride 94 mmol/L (98-107); Estimated GFR 35; Glucose 156 mg/dL (83-110); Potassium 3.2 mmol/L (3.5-5.1); Protein, Total 7.5 g/dL (5.8-8.1); Sodium 133 mmol/L (136-145)
[2024-01-31 17:34] LABS: Troponin I 0.027 ng/mL (< 0.028)
[2024-01-31 17:39] LABS: #Basophils 0.05 10x3/uL (0.0-0.2); %Basophils 0.4 % (0.0-1.0); %Eosinophils 1.6 % (0.0-10.0); %Lymphocytes 31.3 % (21.0-51.0); %Monocytes 15.1 % (0.0-10.0); %Neutrophils 51.2 % (42.0-75.0); Hematocrit 42.7 % (36.0-47.0); Hemoglobin 14.5 g/dL (12.0-16.0); Mean Corpuscular Hemoglobin 33.2 pg (27.0-31.0); Mean Corpuscular Volume 97.7 fL (78.0-98.0); Mean Platelet Volume 10.7 fL (7.4-10.4); Platelet Count 236 10x3/uL (130-400); RBC Distribution Width 13.2 % (11.5-14.5); Red Blood Cell (RBC) Count 4.37 mill/uL (4.20-5.40)
[2024-02-01] MEDS ORDERED: Acetaminophen 650 MG Suppository PR PRN (00:24)
[2024-02-01] MEDS ORDERED: Dextrose 5% in Water 1,000 ML IV PRN (00:26)
[2024-02-01] MEDS ORDERED: HumaLOG 300 UNITS/3 ML VIAL SC PRN ×2 (00:26)
[2024-02-01] MEDS ORDERED: Glucagon 1 MG/ML KIT IM PRN (00:26)
[2024-02-01] MEDS ORDERED: Dextrose 50% Abboject 50 ML SYRINGE SLOW IVP PRN (00:26)
[2024-02-01 00:45] LABS: Hemoglobin A1c 7.5 % (4.0-6.0)
[2024-02-01] MEDS: Potassium Chloride 20 MEQ TAB PO SCH (02:51)
[2024-02-01] MEDS: Morphine 2 MG/ML VIAL SLOW IVP PRN (03:00)
[2024-02-01] MEDS: Ondansetron PF 4 MG/2 ML Vial IVP PRN (03:00)
[2024-02-01 06:23] VITALS: BMI 31.6
[2024-02-01 07:06] LABS: Anion Gap 19 mmol/L (10-20); BUN (Urea Nitrogen) 45 mg/dL (9.8-20.1); Calc. Creatinine Clearance 49 mL/min (70-130); Carbon Dioxide 15 mmol/L (23-31); Chloride 97 mmol/L (98-107); Estimated GFR 48; Glucose 166 mg/dL (83-110); Sodium 127 mmol/L (136-145)
[2024-02-01 07:34] LABS: #Basophils 0.08 10x3/uL (0.0-0.2); %Basophils 0.6 % (0.0-1.0); %Eosinophils 1.2 % (0.0-10.0); %Lymphocytes 22.3 % (21.0-51.0); %Neutrophils 62.6 % (42.0-75.0); Hematocrit 46.6 % (36.0-47.0); Hemoglobin 14.3 g/dL (12.0-16.0); Mean Corpuscular HGB CONC 30.7 g/dL (32.0-36.0); Mean Corpuscular Hemoglobin 32.8 pg (27.0-31.0); Mean Corpuscular Volume 106.9 fL (78.0-98.0); Platelet Count 157 10x3/uL (130-400); RBC Distribution Width 13.4 % (11.5-14.5); Red Blood Cell (RBC) Count 4.36 mill/uL (4.20-5.40)
[2024-02-01] MEDS: Famotidine/PF 20 mg/2ml Vial SLOW IVP SCH (07:49)
[2024-02-01] MEDS: Losartan 25 MG TAB PO SCH (08:10)
[2024-02-01] MEDS: Multivitamin W/ Minerals 1 TAB PO SCH (08:10)
[2024-02-01] MEDS: NIFEdipine XL 30 MG ER.TAB PO SCH (08:10)
[2024-02-01] MEDS: Carvedilol 3.125 MG TAB PO SCH (08:11)
[2024-02-01] MEDS: Famotidine 20 MG TAB PO SCH (08:11)
[2024-02-01] MEDS: Furosemide 40 MG TAB PO SCH (08:11)
[2024-02-01] MEDS: Gabapentin 300 MG CAP PO SCH (08:11)
[2024-02-01] MEDS: Aspirin 81 mg Enteric Coated Tablet PO SCH (08:11)
[2024-02-01] MEDS ORDERED: Insulin Lispro 100 UNIT/ML 10 ML VIAL SC PRN (12:07)
[2024-02-01] MEDS ORDERED: Insulin Lispro 100 UNIT/ML 10 ML VIAL SC SCH (12:15)
[2024-02-01] MEDS: Insulin Lispro 100 UNIT/ML 10 ML VIAL SC PRN (12:17)
[2024-02-01] MEDS: Senokot S 8.6-50 MG TAB PO SCH (21:32)
[2024-02-01] MEDS: Atorvastatin Calcium 40 MG TAB PO SCH (21:32)
[2024-02-01] MEDS: Acetaminophen 325 MG TAB PO PRN (23:31)
[2024-02-01] MEDS: traMADol HCl 50 MG TAB PO SCH (23:34)
[2024-02-02 07:57] LABS: #Basophils 0.04 10x3/uL (0.0-0.2); %Basophils 0.3 % (0.0-1.0); %Eosinophils 2.2 % (0.0-10.0); %Lymphocytes 17.1 % (21.0-51.0); %Monocytes 10.1 % (0.0-10.0); Hematocrit 41.8 % (36.0-47.0); Hemoglobin 13.4 g/dL (12.0-16.0); Mean Corpuscular HGB CONC 32.1 g/dL (32.0-36.0); Mean Corpuscular Hemoglobin 32.2 pg (27.0-31.0); Mean Corpuscular Volume 100.5 fL (78.0-98.0); Platelet Count 241 10x3/uL (130-400); RBC Distribution Width 13.6 % (11.5-14.5); Red Blood Cell (RBC) Count 4.16 mill/uL (4.20-5.40)
[2024-02-02] MEDS: Polyethylene Glycol 3350 17 GM Packet PO SCH (07:59)
[2024-02-02 10:25] LABS: Anion Gap 17 mmol/L (10-20); BUN (Urea Nitrogen) 49 mg/dL (9.8-20.1); Calc. Creatinine Clearance 42 mL/min (70-130); Calcium 8.9 mg/dL (7.8-10.44); Carbon Dioxide 22 mmol/L (23-31); Chloride 96 mmol/L (98-107); Estimated GFR 39; Glucose 211 mg/dL (83-110); Potassium 4.3 mmol/L (3.5-5.1); Sodium 131 mmol/L (136-145)
[2024-02-02] MEDS: traMADol HCl 50 MG TAB PO PRN (11:42)
[2024-02-02] MEDS: Insulin Lispro 100 UNIT/ML 10 ML VIAL SC PRN (21:29)
[2024-02-03 07:12] LABS: #Basophils 0.05 10x3/uL (0.0-0.2); %Basophils 0.4 % (0.0-1.0); %Eosinophils 2.1 % (0.0-10.0); %Lymphocytes 17.4 % (21.0-51.0); %Monocytes 11.4 % (0.0-10.0); %Neutrophils 68.2 % (42.0-75.0); Hematocrit 38.5 % (36.0-47.0); Hemoglobin 12.6 g/dL (12.0-16.0); Mean Corpuscular HGB CONC 32.7 g/dL (32.0-36.0); Mean Corpuscular Hemoglobin 32.3 pg (27.0-31.0); Mean Corpuscular Volume 98.7 fL (78.0-98.0); Mean Platelet Volume 11.2 fL (7.4-10.4); Platelet Count 246 10x3/uL (130-400); RBC Distribution Width 13.3 % (11.5-14.5)
[2024-02-03 08:04] LABS: Anion Gap 16 mmol/L (10-20); BUN (Urea Nitrogen) 33 mg/dL (9.8-20.1); Calc. Creatinine Clearance 62 mL/min (70-130); Calcium 9.1 mg/dL (7.8-10.44); Carbon Dioxide 21 mmol/L (23-31); Chloride 98 mmol/L (98-107); Estimated GFR 63; Glucose 147 mg/dL (83-110); Potassium 4.2 mmol/L (3.5-5.1); Sodium 131 mmol/L (136-145)
[2024-02-03] MEDS: Dextrose 5 % And 0.9 % NaCl 1,000 ML IV SCH (08:22)
[2024-02-03] MEDS: LevoFLOXacin 500 mg/D5W 500 MG in Premix 1 BAG IVPB SCH (11:43)
[2024-02-03] MEDS: LevoFLOXacin 750 mg/D5W 750 MG in Premix 1 BAG IVPB SCH (11:47)
[2024-02-03] MEDS: Vancomycin (BATCH) 1.75 GM in Premix 1 BAG IVPB SCH (12:39)
[2024-02-03] MEDS: Bisacodyl 10 MG SUPP PR PRN (18:18)
[2024-02-03] MEDS ORDERED: Vancomycin 1 GM in Sodium Chloride 0.9% 250 ML 250 ML IVPB SCH (21:00)
[2024-02-03] MEDS: Gabapentin 100 MG CAP PO SCH (21:05)
[2024-02-04 06:02] LABS: #Basophils 0.04 10x3/uL (0.0-0.2); %Basophils 0.3 % (0.0-1.0); %Eosinophils 2.5 % (0.0-10.0); %Lymphocytes 15.1 % (21.0-51.0); %Monocytes 11.9 % (0.0-10.0); %Neutrophils 69.9 % (42.0-75.0); Hematocrit 38.9 % (36.0-47.0); Hemoglobin 12.4 g/dL (12.0-16.0); Mean Corpuscular HGB CONC 31.9 g/dL (32.0-36.0); Mean Corpuscular Hemoglobin 32.3 pg (27.0-31.0); Mean Corpuscular Volume 101.3 fL (78.0-98.0); Mean Platelet Volume 10.4 fL (7.4-10.4); Platelet Count 256 10x3/uL (130-400); RBC Distribution Width 13.3 % (11.5-14.5); Red Blood Cell (RBC) Count 3.84 mill/uL (4.20-5.40)
[2024-02-04 06:45] LABS: Vancomycin, Random 13.4 ug/mL (See Comment)
[2024-02-04 06:47] LABS: Anion Gap 12 mmol/L (10-20); BUN (Urea Nitrogen) 20 mg/dL (9.8-20.1); Calc. Creatinine Clearance 67 mL/min (70-130); Calcium 8.8 mg/dL (7.8-10.44); Carbon Dioxide 26 mmol/L (23-31); Chloride 100 mmol/L (98-107); Estimated GFR 69; Glucose 211 mg/dL (83-110); Potassium 4.4 mmol/L (3.5-5.1); Sodium 134 mmol/L (136-145)
[2024-02-04] MEDS: Loratadine 10 MG TAB PO SCH (09:28)
[2024-02-04] MEDS: Vancomycin (BATCH) 1.25 GM in Premix 1 BAG IVPB SCH (11:49)
[2024-02-04] MEDS ORDERED: Vancomycin (BATCH) 1.5 GM in Premix 1 BAG IVPB SCH (12:00)
[2024-02-04] MEDS: Calamine/Zinc Oxide 177 ML LOTION TP SCH (21:17)
[2024-02-05 05:37] LABS: #Basophils 0.07 10x3/uL (0.0-0.2); %Basophils 0.5 % (0.0-1.0); %Eosinophils 2.3 % (0.0-10.0); %Lymphocytes 13.5 % (21.0-51.0); %Monocytes 12.2 % (0.0-10.0); %Neutrophils 70.7 % (42.0-75.0); Hematocrit 40.6 % (36.0-47.0); Mean Corpuscular Hemoglobin 32.1 pg (27.0-31.0); Mean Corpuscular Volume 100.2 fL (78.0-98.0); Mean Platelet Volume 10.5 fL (7.4-10.4); Platelet Count 275 10x3/uL (130-400); RBC Distribution Width 13.2 % (11.5-14.5); Red Blood Cell (RBC) Count 4.05 mill/uL (4.20-5.40)
[2024-02-05 05:52] LABS: Anion Gap 14 mmol/L (10-20); BUN (Urea Nitrogen) 13 mg/dL (9.8-20.1); Calc. Creatinine Clearance 68 mL/min (70-130); Calcium 8.9 mg/dL (7.8-10.44); Carbon Dioxide 26 mmol/L (23-31); Chloride 100 mmol/L (98-107); Estimated GFR 71; Glucose 157 mg/dL (83-110); Sodium 136 mmol/L (136-145)
[2024-02-05] MEDS: Sodium Chloride 0.9% 1,000 ML IV SCH (09:16)
[2024-02-05] MEDS: LevoFLOXacin 750 mg/D5W 750 MG in Premix 1 BAG IVPB SCH (11:22)
[2024-02-06 05:44] LABS: #Basophils 0.05 10x3/uL (0.0-0.2); %Basophils 0.4 % (0.0-1.0); %Eosinophils 1.5 % (0.0-10.0); %Lymphocytes 16.5 % (21.0-51.0); %Monocytes 13.3 % (0.0-10.0); %Neutrophils 67.6 % (42.0-75.0); Hemoglobin 13.3 g/dL (12.0-16.0); Mean Corpuscular HGB CONC 32.4 g/dL (32.0-36.0); Mean Corpuscular Hemoglobin 32.8 pg (27.0-31.0); Mean Platelet Volume 10.2 fL (7.4-10.4); Platelet Count 297 10x3/uL (130-400); RBC Distribution Width 13.2 % (11.5-14.5); Red Blood Cell (RBC) Count 4.06 mill/uL (4.20-5.40)
[2024-02-06 06:24] LABS: Anion Gap 14 mmol/L (10-20); BUN (Urea Nitrogen) 15 mg/dL (9.8-20.1); Calc. Creatinine Clearance 65 mL/min (70-130); Calcium 8.6 mg/dL (7.8-10.44); Carbon Dioxide 22 mmol/L (23-31); Chloride 101 mmol/L (98-107); Estimated GFR 67; Glucose 189 mg/dL (83-110); Sodium 133 mmol/L (136-145)
[2024-02-06 06:29] LABS: Vancomycin, Random 15.5 ug/mL (See Comment)
[2024-02-06] MEDS: Ondansetron ODT 4 MG TAB PO PRN (11:44)
[2024-02-06] MEDS: LevoFLOXacin 750 mg/D5W 750 MG in Premix 1 BAG IVPB SCH (11:45)
[2024-02-06] MEDS: Furosemide 20 MG (2 mL) VIAL SLOW IVP SCH (18:46)
[2024-02-07 11:49] VITALS: BMI 31.6
[2024-02-08] MEDS: Melatonin 3 MG TAB PO PRN (22:09)
[2024-02-10] MEDS: valACYclovir 500 MG TAB PO SCH (20:27)
[2024-02-11] MEDS: Acyclovir 800 mg Tablet PO SCH (11:55)
[2024-02-11] MEDS: LevoFLOXacin 750 mg/D5W 750 MG in Premix 1 BAG IVPB SCH (13:39)
[2024-02-11 18:33] LABS: Hematocrit 36.2 % (36.0-47.0); Hemoglobin 11.9 g/dL (12.0-16.0)
[2024-02-11] MEDS: Nitrofurantoin Monohyd/M-Cryst 100 MG CAP PO SCH (22:10)
[2024-02-11 22:41] LABS: Bacteria/HPF 4+ HPF (None Seen); Bilirubin Negative (Negative); Blood, Urine 3+ (Negative); CAUTI Indications for Culture Acute Hematuria; Clarity Extra Turbid (Clear); Glucose, Urine (Dipstick) 150 mg/dL (Negative); Ketone, Urine Negative (Negative); Leukocyte 500 Leu/uL (Negative); Nitrite Negative (Negative); Protein, Urine (Dipstick) 200 mg/dL (Neg-Trace); RBC/HPF Greater than 50 HPF (0-3); Specific Gravity, Urine 1.013 (1.002-1.036); Urobilinogen Normal mg/dL (Less than 2); WBC/HPF Greater than 50 HPF (0-3)
[2024-02-11 23:00] LABS: Urine Culture Reflex Yes Yes
[2024-02-12] MEDS: LevoFLOXacin 750 mg/D5W 750 MG in Premix 1 BAG IVPB SCH (11:50)
[2024-02-13 11:34] LABS: #Basophils 0.06 10x3/uL (0.0-0.2); %Basophils 0.5 % (0.0-1.0); %Eosinophils 2.1 % (0.0-10.0); %Lymphocytes 20.3 % (21.0-51.0); %Monocytes 9.5 % (0.0-10.0); %Neutrophils 66.8 % (42.0-75.0); Hematocrit 36.2 % (36.0-47.0); Hemoglobin 11.7 g/dL (12.0-16.0); Mean Corpuscular HGB CONC 32.3 g/dL (32.0-36.0); Mean Corpuscular Volume 98.9 fL (78.0-98.0); Mean Platelet Volume 9.7 fL (7.4-10.4); Platelet Count 329 10x3/uL (130-400); RBC Distribution Width 13.2 % (11.5-14.5); Red Blood Cell (RBC) Count 3.66 mill/uL (4.20-5.40)
[2024-02-13 11:50] LABS: Anion Gap 12 mmol/L (10-20); BUN (Urea Nitrogen) 20 mg/dL (9.8-20.1); Calc. Creatinine Clearance 62 mL/min (70-130); Calcium 8.9 mg/dL (7.8-10.44); Carbon Dioxide 30 mmol/L (23-31); Chloride 99 mmol/L (98-107); Estimated GFR 63; Glucose 310 mg/dL (83-110); Potassium 3.7 mmol/L (3.5-5.1); Sodium 137 mmol/L (136-145)
[2024-02-13 16:28] VITALS: BP 145/81; TEMP 97.6
== END 2024-02-13 17:38 | DRG 866 ==
LOC: ERS 16:22 → ERHOLD 20:41 → T4-A 02-01 00:47 → OBSVTOIN 02-01 12:03
PROVIDERS: ADMIT Student in an Organized Health Care Education/Training Program; ATTEND Internal Medicine
DX: B02.8 Zoster with other complications (principal); N39.0 Urinary tract infection, site not specified; I13.0 Hypertensive heart and chronic kidney disease with heart failure and stage 1 through stage 4 chronic kidney disease, or unspecified chronic kidney disease; N17.9 Acute kidney failure, unspecified; E87.1 Hypo-osmolality and hyponatremia; L03.90 Cellulitis, unspecified; E11.22 Type 2 diabetes mellitus with diabetic chronic kidney disease; R21 Rash and other nonspecific skin eruption; I44.7 Left bundle-branch block, unspecified; I48.0 Paroxysmal atrial fibrillation; E87.6 Hypokalemia; N18.31 Chronic kidney disease, stage 3a; R53.81 Other malaise; R31.9 Hematuria, unspecified; B95.2 Enterococcus as the cause of diseases classified elsewhere; I50.9 Heart failure, unspecified; R29.6 Repeated falls; Z88.8 Allergy status to other drugs, medicaments and biological substances; Z79.4 Long term (current) use of insulin; Z79.899 Other long term (current) drug therapy; Z79.82 Long term (current) use of aspirin; Z86.73 Personal history of transient ischemic attack (TIA), and cerebral infarction without residual deficits; Z90.89 Acquired absence of other organs; Z90.710 Acquired absence of both cervix and uterus; Z98.890 Other specified postprocedural states
CPT/HCPCS: 36415; 36416; 71045; 72170; 80048; 80053; 80202; 81001; 82565; 83036; 83880; 84484; 85014; 85018; 85025; 87077; 87086; 87186; 93005; 96374; 96375; 96376; 97139; G0378; J0133; J1815; J1940; J1956; J2272; J2405; J3370; J3490; J7042; J7050; Q0162